=== PATIENT | male | born 1985 | race Caucasian/White ===

== ENCOUNTER → 2017-04-19 | Outpatient (CLI) | payer OTHER ==
--- NOTE | 2017-04-19 09:48 | REP ---
Clinical: Pain. Technique: AP, lateral, bilateral oblique views of the left hand. Findings: No acute fracture or dislocation. Oblique views demonstrate soft tissue swelling overlying and lateral to the fourth and fifth metacarpal bones without underlying subcutaneous emphysema or radiodense foreign body. Impression: Soft-tissue swelling. No acute fracture dislocation. No significant arthritic degenerative changes. Signed by Juan Urbina MD 04/19/2017 09:40 A
== END ==
LOC: M RAD 08:52
PROVIDERS: ATTEND Surgery
DX: R22.32 Localized swelling, mass and lump, left upper limb (principal)

== ENCOUNTER → 2017-09-22 | Outpatient (REF) | payer MEDICAID | LOC: M LAB REF 19:37 | DX: F11.20 Opioid dependence, uncomplicated (principal) ==

== ENCOUNTER → 2017-09-29 | Outpatient (REF) | payer MEDICAID ==
[2017-10-03 08:07] LABS: AMPHETAMINE SCREEN, URINE Negative ng/mL (Cutoff=1000); BARBITURATES SCREEN, URINE Negative ng/mL (Cutoff=200); BENZODIAZEPINES, URINE SCREEN Negative ng/mL (Cutoff=200); CANNABINOID SCREEN, URINE Negative ng/mL (Cutoff=20); COCAINE SCREEN, URINE Negative ng/mL (Cutoff=300); CREATININE, URINE 131.2 mg/dL (20.0-300.0); FENTANYL URINE SCREEN Negative pg/mL (Cutoff=2000); METHADONE, URINE SCREEN Negative ng/mL (Cutoff=300); OPIATE SCREEN, URINE Negative ng/mL (Cutoff=300); OXYCODONE, SCREEN, URINE Negative ng/mL (Cutoff=100); PCP SCREEN, URINE Negative ng/mL (Cutoff=25); SPECIFIC GRAVITY, URINE 1.023 (.); pH, URINE 8.3 (4.5-8.9)
== END ==
LOC: M LAB REF 21:23
DX: F11.20 Opioid dependence, uncomplicated (principal)

== ENCOUNTER → 2017-10-05 | Outpatient (REF) | payer MEDICAID | LOC: M LAB REF 16:37 | DX: F11.20 Opioid dependence, uncomplicated (principal) ==

== ENCOUNTER 2017-10-06 21:22 | Emergency (ER) | payer MEDICAID ==
[2017-10-06] MEDS ORDERED: ERYTHROMYCIN OPHTH OINT As Ordered (22:37)
[2017-10-06] MEDS: FLUORESCEIN OPHTH 1 MG STRIP OU (22:45)
[2017-10-06] MEDS: TETRACAINE 0.5% OPHTH SOLN 4ML OU (22:45)
[2017-10-06] MEDS: ERYTHROMYCIN OPHTH OINT OU (22:45)
== END 2017-10-06 23:46 | disposition home or self-care (01) ==
LOC: M ED 21:22
DX: S05.01XA Injury of conjunctiva and corneal abrasion without foreign body, right eye, initial encounter (principal); X58.XXXA Exposure to other specified factors, initial encounter; Y92.89 Other specified places as the place of occurrence of the external cause; Z79.899 Other long term (current) drug therapy
CPT/HCPCS: 99283

== ENCOUNTER → 2017-10-18 | Outpatient (REF) | payer MEDICAID | LOC: M LAB REF 19:49 | DX: F11.20 Opioid dependence, uncomplicated (principal) ==

== ENCOUNTER → 2017-10-31 | Outpatient (REF) | payer MEDICAID | LOC: M LAB REF 16:47 | DX: F11.20 Opioid dependence, uncomplicated (principal) ==

== ENCOUNTER → 2017-11-02 | Outpatient (REF) | payer MEDICAID | LOC: M LAB REF 17:01 | DX: F11.20 Opioid dependence, uncomplicated (principal) ==

== ENCOUNTER → 2017-12-13 | Outpatient (REF) | payer MEDICAID ==
[2017-12-13 20:09] LABS: ALBUMIN/GLOBULIN RATIO 1.11 (1.00-1.93); ALKALINE PHOSPHATASE 76 U/L (45-117); ALT/SGPT 55 U/L (12-78); ANION GAP 9 MEQ/L (8-16); AST/SGOT 37 U/L (7-37); BILIRUBIN,TOTAL 0.2 MG/DL (0.2-1.0); BLOOD UREA NITROGEN 20 MG/DL (7-18); CALCIUM LEVEL 8.9 MG/DL (8.5-10.1); CARBON DIOXIDE LEVEL 28 MEQ/L (21-32); CHLORIDE LEVEL 103 MEQ/L (98-107); CREATININE FOR GFR 1.03 MG/DL (0.70-1.30); GLOMERULAR FILTRATION RATE > 60.0 (>60); GLUCOSE, FASTING 102 MG/DL (70-100); POTASSIUM SERUM 3.9 MEQ/L (3.5-5.1); SODIUM LEVEL 140 MEQ/L (136-145); TOTAL PROTEIN 7.6 GM/DL (6.4-8.2)
[2017-12-15 10:57] LABS: HEPATITIS C VIRUS ABY INDEX > 11.0 INDEX (<0.8)
[2017-12-19 14:19] LABS: AMPHETAMINE SCREEN, URINE Negative ng/mL (Cutoff=1000); BARBITURATES SCREEN, URINE Negative ng/mL (Cutoff=200); BENZODIAZEPINES, URINE SCREEN Negative ng/mL (Cutoff=200); CANNABINOID SCREEN, URINE Negative ng/mL (Cutoff=20); COCAINE SCREEN, URINE Negative ng/mL (Cutoff=300); FENTANYL URINE SCREEN Negative pg/mL (Cutoff=2000); METHADONE, URINE SCREEN Negative ng/mL (Cutoff=300); NALOXONE RESULT Positive (.); OPIATE SCREEN, URINE Negative ng/mL (Cutoff=300); OXYCODONE, SCREEN, URINE Negative ng/mL (Cutoff=100); PCP SCREEN, URINE Negative ng/mL (Cutoff=25); SPECIFIC GRAVITY, URINE 1.025 (.); URINE BUPRENORPHINE Positive (.); URINE BUPRENORPHINE Positive (Cutoff=10); URINE BUPRENORPHINE See Final Results ng/mL (Cutoff=10); URINE BUPRENORPHINE CONFIRM 118 ng/mL (Cutoff=10); URINE NORBUPRENORPHINE Positive (.); URINE NORBUPRENORPHINE CONFIRM 380 ng/mL (Cutoff=10); pH, URINE 6.3 (4.5-8.9)
[2017-12-21 00:08] LABS: HCV RNA NAA QUALITATIVE Positive (Negative)
== END ==
LOC: M LAB REF 19:21
DX: F11.20 Opioid dependence, uncomplicated (principal)
CPT/HCPCS: 80053

== ENCOUNTER 2017-12-26 06:31 | Emergency (ER) | payer MEDICAID ==
[2017-12-26] MEDS ORDERED: ISOVUE-370 76% 100ML VIAL (Q9967) As Ordered (07:15)
[2017-12-26 07:28] LABS: BASO % 0.2 % (0.0-1.0); EOS # 0.1 10^3/uL (0.0-0.50); EOS % 0.3 % (0.0-3.0); HEMATOCRIT 37.9 % (42.0-52.0); HEMOGLOBIN 13.4 g/dl (13.5-17.5); IMMATURE GRANULOCYTE % 0.6 % (0-3.0); LYMPH # 1.8 10^3/uL (1.5-4.5); LYMPH % 9.6 % (24.0-44.0); MEAN CORPUSCULAR HEMOGLOBIN 29.9 pg (27.0-33.0); MEAN CORPUSCULAR HGB CONC 35.4 g/dl (32.0-36.5); MEAN CORPUSCULAR VOLUME 84.6 fl (80.0-96.0); MONO # 1.3 10^3/uL (0.0-0.8); MONO % 6.9 % (0.0-5.0); NEUTROPHILS # 15.6 10^3/uL (1.8-7.7); NEUTROPHILS % 82.4 % (36.0-66.0); PLATELET COUNT, AUTOMATED 224 10^3/uL (150-450); RED BLOOD COUNT 4.48 10^6/uL (4.30-6.10); WHITE BLOOD COUNT 18.9 10^3/uL (4.0-10.0)
[2017-12-26] MEDS: methylPREDNISolone INJ 125 MG/2 ML VIAL (J2930) IV (07:33)
[2017-12-26 07:55] LABS: D-DIMER QUANT 333.2 ng/ml (<500)
[2017-12-26] MEDS ORDERED: MOXIFLOXACIN 400 MG/250 ML IV BAG (AVELOX) (J2280) As Ordered (07:55)
[2017-12-26 07:58] LABS: ALBUMIN 3.8 GM/DL (3.2-5.2); ALBUMIN/GLOBULIN RATIO 0.97 (1.00-1.93); ALKALINE PHOSPHATASE 74 U/L (45-117); ALT/SGPT 44 U/L (12-78); ANION GAP 5 MEQ/L (8-16); AST/SGOT 29 U/L (7-37); BILIRUBIN,DIRECT 0.1 MG/DL (0.0-0.2); BILIRUBIN,TOTAL 0.7 MG/DL (0.2-1.0); BLOOD UREA NITROGEN 14 MG/DL (7-18); CALCIUM LEVEL 8.7 MG/DL (8.5-10.1); CARBON DIOXIDE LEVEL 29 MEQ/L (21-32); CHLORIDE LEVEL 102 MEQ/L (98-107); CK-MB VALUE MASS 1.2 NG/ML (<3.6); CPK CREATINE PHOSPHOKINASE 259 U/L (39-308); CREATININE FOR GFR 1.07 MG/DL (0.70-1.30); GLOMERULAR FILTRATION RATE > 60.0 (>60); GLUCOSE, FASTING 126 MG/DL (70-100); MB/CK RELATIVE INDEX 0.46 (< OR =4); SODIUM LEVEL 136 MEQ/L (136-145); TOTAL PROTEIN 7.7 GM/DL (6.4-8.2); TROPONIN I < 0.02 NG/ML (< 0.10)
[2017-12-26] MEDS: IPRATROPIUM 0.5MG/ALBUTEROL 2.5MG INH SOL UD 3ML (DUONEB)(J7620) NEB (08:09)
[2017-12-26] MEDS: ALBUTEROL SULFATE 2.5 MG/0.5 ML INH NEB SOLN INH (08:09)
[2017-12-26] MEDS: MOXIFLOXACIN HCL 400 MG in APPROPRIATE DILUENT 1 EA IV (08:22)
[2017-12-26] MEDS: NS 1,000 ML IV (09:23)
== END 2017-12-26 09:52 | disposition home or self-care (01) ==
LOC: M ED 06:31
DX: J18.9 Pneumonia, unspecified organism (principal); R94.31 Abnormal electrocardiogram [ECG] [EKG]; F17.200 Nicotine dependence, unspecified, uncomplicated; Z79.899 Other long term (current) drug therapy
CPT/HCPCS: J2280

== ENCOUNTER → 2018-01-03 | Outpatient (REF) | payer MEDICAID ==
[2018-01-11 10:13] LABS: AMPHETAMINE SCREEN, URINE Negative ng/mL (Cutoff=1000); BARBITURATES SCREEN, URINE Negative ng/mL (Cutoff=200); BENZODIAZEPINES, URINE SCREEN Negative ng/mL (Cutoff=200); CANNABINOID SCREEN, URINE Negative ng/mL (Cutoff=20); COCAINE SCREEN, URINE Negative ng/mL (Cutoff=300); CREATININE, URINE 156.9 mg/dL (20.0-300.0); FENTANYL URINE SCREEN Negative pg/mL (Cutoff=2000); METHADONE, URINE SCREEN Negative ng/mL (Cutoff=300); NALOXONE RESULT Positive (.); OPIATE SCREEN, URINE Negative ng/mL (Cutoff=300); OXYCODONE, SCREEN, URINE Negative ng/mL (Cutoff=100); PCP SCREEN, URINE Negative ng/mL (Cutoff=25); URINE BUPRENORPHINE Positive (.); URINE BUPRENORPHINE Positive (Cutoff=10); URINE BUPRENORPHINE See Final Results ng/mL (Cutoff=10); URINE BUPRENORPHINE CONFIRM 144 ng/mL (Cutoff=10); URINE NORBUPRENORPHINE Positive (.); URINE NORBUPRENORPHINE CONFIRM 232 ng/mL (Cutoff=10); pH, URINE 5.5 (4.5-8.9)
== END ==
LOC: M LAB REF 19:05
DX: F11.20 Opioid dependence, uncomplicated (principal)

== ENCOUNTER → 2018-02-21 | Outpatient (REF) | payer MEDICAID ==
[2018-02-27 14:48] LABS: HEPATITIS C QUANTITATION 4867780 IU/mL (.)
== END ==
LOC: M LAB REF 09:00
DX: B18.2 Chronic viral hepatitis C (principal)

== ENCOUNTER → 2018-03-21 | Outpatient (REF) | payer MEDICAID ==
[2018-03-21 20:18] LABS: BASO % 0.5 % (0.0-1.0); EOS # 0.2 10^3/uL (0.0-0.50); HEMATOCRIT 37.8 % (42.0-52.0); HEMOGLOBIN 13.8 g/dl (13.5-17.5); IMMATURE GRANULOCYTE % 0.5 % (0-3.0); LYMPH # 2.2 10^3/uL (1.5-4.5); LYMPH % 29.4 % (24.0-44.0); MEAN CORPUSCULAR HEMOGLOBIN 31.2 pg (27.0-33.0); MEAN CORPUSCULAR HGB CONC 36.5 g/dl (32.0-36.5); MEAN CORPUSCULAR VOLUME 85.3 fl (80.0-96.0); MONO # 0.4 10^3/uL (0.0-0.8); MONO % 5.6 % (0.0-5.0); NEUTROPHILS # 4.7 10^3/uL (1.8-7.7); PLATELET COUNT, AUTOMATED 231 10^3/uL (150-450); RED BLOOD COUNT 4.43 10^6/uL (4.30-6.10); RED CELL DISTRIBUTION WIDTH 12.1 % (11.5-14.5); WHITE BLOOD COUNT 7.6 10^3/uL (4.0-10.0)
[2018-03-21 20:59] LABS: INR 0.88; PROTHROMBIN TIME 12.1 SECONDS (12.1-14.4)
[2018-03-23 10:33] LABS: HEPATITIS B SURFACE ANTIBODY POSITIVE (POSITIVE)
[2018-03-23 10:41] LABS: HEPATITIS B SURFACE ANTIGEN NEGATIVE (NEGATIVE)
[2018-03-23 10:56] LABS: HIV 1&2 SCREEN CENTAUR NEGATIVE (NEGATIVE)
[2018-03-27 00:07] LABS: HEPATITIS A IgG TOTAL Positive (Negative); HEPATITIS C VIRUS GENOTYPE 1b (.)
== END ==
LOC: M LAB REF 19:36
DX: B18.2 Chronic viral hepatitis C (principal)
CPT/HCPCS: 86706

== ENCOUNTER 2018-04-14 08:19 | Emergency (ER) | payer OTHER, MEDICAID | END 2018-04-14 10:04 | disposition home or self-care (01) | LOC: M ED 08:19 | DX: M77.9 Enthesopathy, unspecified (principal); M19.041 Primary osteoarthritis, right hand; Z79.899 Other long term (current) drug therapy | CPT/HCPCS: 73130 ==

== ENCOUNTER → 2018-06-13 | Outpatient (REF) | payer OTHER ==
[2018-06-18 14:09] LABS: HEPATITIS C QUANTITATION <15 IU/mL (.)
== END ==
LOC: M LAB REF 18:28
DX: B18.2 Chronic viral hepatitis C (principal)
CPT/HCPCS: 87522

== ENCOUNTER → 2018-07-26 | Outpatient (REF) | payer OTHER ==
[2018-07-26 10:36] LABS: HEMATOCRIT 38.7 % (42.0-52.0); HEMOGLOBIN 13.8 g/dl (13.5-17.5); MEAN CORPUSCULAR HEMOGLOBIN 30.3 pg (27.0-33.0); MEAN CORPUSCULAR HGB CONC 35.7 g/dl (32.0-36.5); MEAN CORPUSCULAR VOLUME 84.9 fl (80.0-96.0); PLATELET COUNT, AUTOMATED 195 10^3/uL (150-450); RED BLOOD COUNT 4.56 10^6/uL (4.30-6.10); RED CELL DISTRIBUTION WIDTH 11.9 % (11.5-14.5)
[2018-07-26 11:01] LABS: ERYTHROCYTE SEDIMENTATION RATE 29 mm/hr (0-15)
[2018-07-26 12:16] LABS: C REACTIVE PROTEIN QUANTITATIV 0.55 MG/DL (0.00-0.30); RHEUMATOID FACTOR QUANT < 10.0 IU/ML (<15.0)
[2018-07-26 12:16] LABS: URIC ACID 5.5 MG/DL (3.5-7.2)
[2018-07-27 10:13] LABS: ANTINUCLEAR ANTIBODIES DIRECT Negative (Negative)
== END ==
LOC: M LABDRAW1 09:36
DX: G56.01 Carpal tunnel syndrome, right upper limb (principal)
CPT/HCPCS: 84550

== ENCOUNTER → 2018-08-08 | Outpatient (REF) | payer OTHER ==
[~2018-08-08] MED LIST: ALBU17IN2 INH; AVEL1TAB3 PO; IBUP-1022 PO; MOBI4TAB PO; OMEP40CA2 PO; PRED50TA PO; SUBO8MIS; TOBRSUS41 OP; TRIA0.5O; VENTAER IN
[2018-08-15 10:12] LABS: HEPATITIS C QUANTITATION HCV Not Detected IU/mL (.)
== END ==
LOC: M LAB REF 17:59
PROVIDERS: ATTEND Nurse Practitioner Adult Health
DX: B18.2 Chronic viral hepatitis C (principal)

== ENCOUNTER 2018-08-30 16:39 | Emergency (ER) | payer OTHER ==
[~2018-08-30] VITALS: Ht 172.7 cm; Wt 95.5 kg
[2018-08-30 17:13] LABS: BASO % 0.2 % (0.0-1.0); EOS # 0.1 10^3/uL (0.0-0.50); EOS % 1.1 % (0.0-3.0); HEMATOCRIT 38.7 % (42.0-52.0); LYMPH # 2.3 10^3/uL (1.5-4.5); LYMPH % 18.1 % (24.0-44.0); MEAN CORPUSCULAR HGB CONC 36.2 g/dl (32.0-36.5); MEAN CORPUSCULAR VOLUME 85.8 fl (80.0-96.0); MONO # 0.8 10^3/uL (0.0-0.8); MONO % 6.3 % (0.0-5.0); NEUTROPHILS # 9.3 10^3/uL (1.8-7.7); PLATELET COUNT, AUTOMATED 173 10^3/uL (150-450); RED BLOOD COUNT 4.51 10^6/uL (4.30-6.10); WHITE BLOOD COUNT 12.5 10^3/uL (4.0-10.0)
[2018-08-30 17:52] LABS: ALBUMIN 3.9 GM/DL (3.2-5.2); ALT/SGPT 25 U/L (12-78); BILIRUBIN,DIRECT < 0.1 MG/DL (0.0-0.2); BILIRUBIN,TOTAL 0.5 MG/DL (0.2-1.0); BLOOD UREA NITROGEN 15 MG/DL (7-18); CALCIUM LEVEL 8.8 MG/DL (8.5-10.1); CARBON DIOXIDE LEVEL 32 MEQ/L (21-32); CHLORIDE LEVEL 97 MEQ/L (98-107); CREATININE FOR GFR 0.93 MG/DL (0.70-1.30); GLOMERULAR FILTRATION RATE > 60.0 (>60); GLUCOSE, FASTING 109 MG/DL (70-100); LIPASE 339 U/L (73-393); POTASSIUM SERUM 4.3 MEQ/L (3.5-5.1); SODIUM LEVEL 136 MEQ/L (136-145); TOTAL PROTEIN 7.5 GM/DL (6.4-8.2)
[2018-08-30] MEDS ORDERED: ISOVUE-370 76% 100ML VIAL (Q9967) As Ordered ONE (17:54)
--- NOTE | 2018-08-30 18:14 | REPVR ---
EXAM: CT Abdomen and Pelvis With Contrast EXAM DATE/TIME: 08/30/2018 5:06 PM CLINICAL HISTORY: 33 years old, male; Pain; Abdominal pain; Other: Rlq; Additional info: Rlq pain; R/O appy TECHNIQUE: Axial computed tomography images of the abdomen and pelvis with intravenous contrast. All CT scans at this facility use at least one of these dose optimization techniques: automated exposure control; mA and/or kV adjustment per patient size (includes targeted exams where dose is matched to clinical indication); or iterative reconstruction. Coronal and sagittal reformatted images were created and reviewed. CONTRAST: 100 ml of isovue 370 administered intravenously. COMPARISON: No relevant prior studies available. FINDINGS: Lower thorax: Small sliding hiatal hernia. Thickening of the wall the distal esophagus secondary to reflux esophagitis. Clinical correlation needed. ABDOMEN: Liver: There is a diffuse decrease in hepatic parenchymal density, consistent with fatty infiltration. Gallbladder and bile ducts: Normal. No calcified stones. No ductal dilation. Pancreas: Inflammatory changes around the pancreatic head and uncinate process as well as the duodenal sweep. Findings are secondary to acute pancreatitis or duodenitis. Fluid tracks along the anterior pararenal space on the right into the right paracolic gutter. Spleen: Splenomegaly. Adrenals: Normal. No mass. Kidneys and ureters: Normal. No hydronephrosis. Stomach and bowel: Mild thickening of the wall of the terminal ileum which demonstrates enhancement. Findings which may indicate the presence of terminal ileitis of any etiology which should be correlated clinically. Appendix: Normal appendix. PELVIS: Bladder: Unremarkable as visualized. Reproductive: Unremarkable as visualized. ABDOMEN and PELVIS: Intraperitoneal space: Otherwise unremarkable. Bones/joints: No acute fracture. No dislocation. Degenerative narrowing L5-S1 with slight retrolisthesis of L5 on S1. Soft tissues: Small umbilical hernia. Vasculature: Normal. No abdominal aortic aneurysm. Lymph nodes: Normal. No enlarged lymph nodes. IMPRESSION: 1. Splenomegaly. 2. There is a diffuse decrease in hepatic parenchymal density, consistent with fatty infiltration. 3. Small sliding hiatal hernia. Thickening of the wall the distal esophagus secondary to reflux esophagitis. Clinical correlation needed. 4. Inflammatory changes around the pancreatic head and uncinate process as well as the duodenal sweep. Findings are secondary to acute pancreatitis or duodenitis. Fluid tracks along the anterior pararenal space on the right into the right paracolic gutter. 5. Normal appendix. 6. Mild thickening of the wall of the terminal ileum which demonstrates enhancement. Findings which may indicate the presence of terminal ileitis of any etiology which should be correlated clinically. Electronically signed by: Gumaro Davidson On 08/30/2018 18:13:39 PM
[2018-08-30 19:03] LABS: C REACTIVE PROTEIN QUANTITATIV 4.21 MG/DL (0.00-0.30)
[2018-08-30 19:47] LABS: ERYTHROCYTE SEDIMENTATION RATE 33 mm/hr (0-15)
[2018-08-30 20:20] VITALS: BP 130/67
--- NOTE | 2018-08-31 07:17 | ED PDOC ---
Post-Departure Follow-Up dr tapia faxed formal report of ct abd/p for fu Mahin Costello MD Aug 31, 2018 07:17
== END 2018-08-30 20:28 | disposition home or self-care (01) ==
LOC: M ED 16:39
DX: K85.90 Acute pancreatitis without necrosis or infection, unspecified (principal); F11.21 Opioid dependence, in remission; R16.1 Splenomegaly, not elsewhere classified; K44.9 Diaphragmatic hernia without obstruction or gangrene; Z79.899 Other long term (current) drug therapy
CPT/HCPCS: 36415; 74177; 80048; 80076; 81001; 83690; 85025; 85652; 86140; 99284; Q9967

== ENCOUNTER → 2018-09-17 | Outpatient (CLI) | payer OTHER ==
--- NOTE | 2018-09-17 08:45 | REP ---
Right upper quadrant sonography: History: Acute pancreatitis without necrosis or infection. Comparison study: CT exam of the abdomen August 30, 2018. Findings: Scanning through the right upper quadrant of the abdomen demonstrates a normal sized, thin-walled gallbladder without evidence of stone or polyp. Common bile duct is normal measuring 0.5 cm in greatest diameter. No focal liver lesion is seen. Liver size is normal. No pancreatic abnormality is observed. No right renal abnormality is seen. There is no evidence of ascites. The right kidney measures 10.1 x 6.7 x 4.8 cm. Impression: Negative right upper quadrant sonography. Electronically Signed by Avinash Poe MD 09/17/2018 08:37 A
== END ==
LOC: M RAD 06:36
PROVIDERS: ATTEND Surgery
DX: K85.90 Acute pancreatitis without necrosis or infection, unspecified (principal)

== ENCOUNTER → 2018-09-17 | Outpatient (CLI) | payer OTHER ==
[2018-09-17 08:37] LABS: CHOLESTEROL LEVEL 264 MG/DL (<200); CHOLESTEROL RISK RATIO 12.571 (<5); HDL CHOLESTEROL 21 MG/DL (>40); NON-HDL-C 243 MG/DL; TRIGLYCERIDES LEVEL 2756 MG/DL (<150)
== END ==
LOC: M LAB 07:34
PROVIDERS: ATTEND Nurse Practitioner Adult Health
DX: R10.9 Unspecified abdominal pain (principal)

== ENCOUNTER → 2018-10-03 | Outpatient (REF) | payer OTHER ==
[2018-10-05 08:07] LABS: HEPATITIS B CORE ANTIBODY IGG Negative (Negative)
[2018-10-05 11:48] LABS: HEPATITIS B SURFACE ANTIBODY POSITIVE (POSITIVE); HEPATITIS B SURFACE ANTIGEN NEGATIVE (NEGATIVE)
[2018-10-08 14:11] LABS: HEPATITIS C QUANTITATION HCV Not Detected IU/mL (.)
== END ==
LOC: M LAB REF 16:54
PROVIDERS: ATTEND Nurse Practitioner Adult Health
DX: B18.2 Chronic viral hepatitis C (principal)

== ENCOUNTER → 2018-10-04 | Outpatient (REF) | payer OTHER | LOC: M LAB REF 15:09 | PROVIDERS: ATTEND Surgery | DX: L72.0 Epidermal cyst (principal) ==

== ENCOUNTER → 2018-10-11 | Outpatient (REF) | payer OTHER | LOC: M SFHCPLAZ 17:22 | PROVIDERS: ATTEND Orthopaedic Surgery | DX: D23.61 Other benign neoplasm of skin of right upper limb, including shoulder (principal) ==

== ENCOUNTER → 2019-02-10 | Outpatient (CLI) | payer OTHER, SELFPAY ==
[~2019-02-10] MED LIST changes: +FENO160T10 PO; +IBUP80TA PO
[2019-02-10 11:23] LABS: ALBUMIN 3.7 GM/DL (3.2-5.2); ALT/SGPT 32 U/L (12-78); BILIRUBIN,TOTAL 0.4 MG/DL (0.2-1.0); BLOOD UREA NITROGEN 21 MG/DL (7-18); CALCIUM LEVEL 7.7 MG/DL (8.5-10.1); CARBON DIOXIDE LEVEL 30 MEQ/L (21-32); CHLORIDE LEVEL 104 MEQ/L (98-107); CHOLESTEROL LEVEL 255 MG/DL (<200); CHOLESTEROL RISK RATIO 11.086 (<5); CREATININE FOR GFR 0.98 MG/DL (0.70-1.30); GLOMERULAR FILTRATION RATE > 60.0 (>60); GLUCOSE, FASTING 160 MG/DL (70-100); HDL CHOLESTEROL 23 MG/DL (>40); NON-HDL-C 232 MG/DL; POTASSIUM SERUM 4.5 MEQ/L (3.5-5.1); SODIUM LEVEL 139 MEQ/L (136-145); TOTAL PROTEIN 7.3 GM/DL (6.4-8.2)
[2019-02-10 11:24] LABS: TRIGLYCERIDES LEVEL 2229 MG/DL (<150)
== END ==
LOC: M LAB 08:10
PROVIDERS: ATTEND Nurse Practitioner Adult Health
DX: E78.1 Pure hyperglyceridemia (principal)

== ENCOUNTER 2019-02-11 17:23 | Emergency (ER) | payer OTHER ==
[~2019-02-11] VITALS: Ht 172.7 cm; Wt 95.6 kg
[~2019-02-11 17:23] MED LIST changes: -FENO160T10 PO; -IBUP80TA PO
[2019-02-11] MEDS ORDERED: FENO160T10 PO (17:42)
[2019-02-11] MEDS ORDERED: IBUP80TA PO (17:42)
[2019-02-11 18:36] LABS: BASO % 0.4 % (0.0-1.0); EOS # 0.2 10^3/uL (0.0-0.50); HEMATOCRIT 35.9 % (42.0-52.0); HEMOGLOBIN 12.6 g/dl (13.5-17.5); LYMPH # 2.8 10^3/uL (1.5-4.5); LYMPH % 32.7 % (24.0-44.0); MEAN CORPUSCULAR HEMOGLOBIN 31.3 pg (27.0-33.0); MEAN CORPUSCULAR HGB CONC 35.1 g/dl (32.0-36.5); MEAN CORPUSCULAR VOLUME 89.1 fl (80.0-96.0); MONO # 0.5 10^3/uL (0.0-0.8); MONO % 5.6 % (0.0-5.0); NEUTROPHILS % 59.1 % (36.0-66.0); PLATELET COUNT, AUTOMATED 222 10^3/uL (150-450); RED BLOOD COUNT 4.03 10^6/uL (4.30-6.10); WHITE BLOOD COUNT 8.5 10^3/uL (4.0-10.0)
[2019-02-11 19:01] LABS: BLOOD UREA NITROGEN 21 MG/DL (7-18); CALCIUM LEVEL 8.3 MG/DL (8.5-10.1); CARBON DIOXIDE LEVEL 29 MEQ/L (21-32); CHLORIDE LEVEL 106 MEQ/L (98-107); CREATININE FOR GFR 1.04 MG/DL (0.70-1.30); GLOMERULAR FILTRATION RATE > 60.0 (>60); GLUCOSE, FASTING 101 MG/DL (70-100); POTASSIUM SERUM 4.4 MEQ/L (3.5-5.1); SODIUM LEVEL 141 MEQ/L (136-145)
[2019-02-11 20:11] VITALS: BP 132/73
--- NOTE | 2019-02-11 22:17 | ECGEPIP ---
[facility] - ED Test Date: 2019-02-11 Pat Name: NIRANJAN TURPIN Department: Room: - Gender: Male [employer]: ada : 1985 Requested By: NATHAN BISHOP Order Number: [id number] Reading MD: Cody Ho Measurements Intervals [place] Rate: 74 P: 30 RI: 181 QRS: 20 QRSD: 110 T: 26 QT: 353 QTc: 394 Interpretive Statements SINUS RHYTHM SIMILAR TO 12/26/17 Electronically Signed on 02-11-2019 22:17:49 EDT by Cody Ho
== END 2019-02-11 20:19 | disposition home or self-care (01) ==
LOC: M ED 17:23
DX: E78.5 Hyperlipidemia, unspecified (principal); K21.9 Gastro-esophageal reflux disease without esophagitis; Z83.3 Family history of diabetes mellitus; Z79.891 Long term (current) use of opiate analgesic; Z79.899 Other long term (current) drug therapy

== ENCOUNTER 2019-03-08 01:24 | Emergency (ER) | payer OTHER ==
[~2019-03-08] VITALS: Ht 172.7 cm; Wt 90.9 kg
[~2019-03-08 01:24] MED LIST changes: +FENO160T10 PO; +IBUP80TA PO
[2019-03-08] MEDS ORDERED: TETRACAINE 0.5% OPHTH SOLN 4ML OU ONE (01:45)
[2019-03-08] MEDS ORDERED: SIMV40TA2 (01:57)
[2019-03-08] MEDS ORDERED: FLUORESCEIN OPHTH 1 MG STRIP As Ordered ONE (02:44)
[2019-03-08] MEDS ORDERED: FLUORESCEIN OPHTH 1 MG STRIP OU ONE (02:45)
[2019-03-08] MEDS ORDERED: ERYT1OIN26 OP (03:41)
[2019-03-08] MEDS ORDERED: ERYTHROMYCIN OPHTH OINT OU ONE (03:45)
[2019-03-08 04:18] VITALS: BP 126/77
== END 2019-03-08 04:20 | disposition home or self-care (01) ==
LOC: M ED 01:24
DX: S05.01XA Injury of conjunctiva and corneal abrasion without foreign body, right eye, initial encounter (principal); S05.02XA Injury of conjunctiva and corneal abrasion without foreign body, left eye, initial encounter; X58.XXXA Exposure to other specified factors, initial encounter; Y92.9 Unspecified place or not applicable; Y93.9 Activity, unspecified; Y99.9 Unspecified external cause status; E78.00 Pure hypercholesterolemia, unspecified; Z72.0 Tobacco use; Z79.899 Other long term (current) drug therapy

== ENCOUNTER → 2019-04-11 | Outpatient (CLI) | payer OTHER ==
[~2019-04-11] MED LIST changes: -ALBU17IN2 INH; +ERYT1OIN26 OP; +PROV108A INH; +SIMV40TA2
[2019-04-11 09:05] LABS: HEMOGLOBIN A1c 5.7 %
[2019-04-11 09:13] LABS: ALBUMIN 3.9 GM/DL (3.2-5.2); ALT/SGPT 30 U/L (12-78); AMYLASE 58 U/L (25-115); BILIRUBIN,DIRECT < 0.1 MG/DL (0.0-0.2); BILIRUBIN,TOTAL 0.3 MG/DL (0.2-1.0); BLOOD UREA NITROGEN 15 MG/DL (7-18); CHOLESTEROL LEVEL 186 MG/DL (<200); CHOLESTEROL RISK RATIO 6.413 (<5); CPK CREATINE PHOSPHOKINASE 302 U/L (39-308); CREATININE FOR GFR 0.93 MG/DL (0.70-1.30); FREE T4 1.09 NG/DL (0.76-1.46); GLOMERULAR FILTRATION RATE > 60.0 (>60); HDL CHOLESTEROL 29 MG/DL (>40); LIPASE 162 U/L (73-393); NON-HDL-C 157 MG/DL; TOTAL PROTEIN 7.3 GM/DL (6.4-8.2); TRIGLYCERIDES LEVEL 605 MG/DL (<150)
== END ==
LOC: M LAB 07:37
PROVIDERS: ATTEND Internal Medicine Gastroenterology
DX: K85.90 Acute pancreatitis without necrosis or infection, unspecified (principal)

== ENCOUNTER → 2019-07-29 | Outpatient (CLI) | payer OTHER ==
[~2019-07-29] MED LIST changes: -OMEP40CA2 PO; +OMEP40CA97 PO; -SIMV40TA2; +SIMV40TA20
== END ==
LOC: M SLEEP HO 10:40
PROVIDERS: ATTEND Internal Medicine Cardiovascular Disease
DX: R06.83 Snoring (principal); R06.02 Shortness of breath
CPT/HCPCS: 36415; 83880; G0399

== ENCOUNTER → 2020-05-26 | Outpatient (CLI) | payer OTHER ==
[~2020-05-26] MED LIST changes: -ERYT1OIN26 OP; +ERYT5OIN25 OP
--- NOTE | 2020-05-29 09:42 | REP ---
LUMBOSACRAL SPINE SERIES: 05/26/20. CLINICAL: Lower back pain. TECHNIQUE: AP lateral bilateral oblique and coned down views of the lumbosacral spine. FINDINGS: Alignment and lordosis maintained. No acute fracture/compression injury or subluxation. No evidence for spondylolysis. Lateral view best demonstrates endplate sclerosis with disc space narrowing and mild hypertrophic facet changes at the L5-S1 level. Remainder of the examination is normal. IMPRESSION: Early degenerative changes at the L5-S1 level. MTDD
== END ==
LOC: M WUC 11:49
PROVIDERS: ATTEND Physician Assistant
DX: M51.37 Other intervertebral disc degeneration, lumbosacral region (principal)

== ENCOUNTER → 2020-06-01 | Outpatient (CLI) | payer OTHER ==
--- NOTE | 2020-06-01 14:22 | REP ---
INDICATION: PAIN IN KNEE AND FOOT COMPARISON: None. TECHNIQUE: AP and lateral views of the left tibia/fibula. FINDINGS: The osseous structures and joint spaces are intact and normal. There is no evidence for acute fracture or dislocation. Surrounding soft tissues are unremarkable. No subcutaneous emphysema or radiodense foreign body. IMPRESSION: Normal radiographic appearance. No acute fracture or dislocation. <Electronically signed by Juan Urbina > 06/01/20 [id number]
--- NOTE | 2020-06-01 14:26 | REP ---
INDICATION: PAIN IN KNEE AND FOOT COMPARISON: None. TECHNIQUE: AP, lateral views of the left calcaneus FINDINGS: The osseous structures and joint spaces are intact and normal. There is no evidence for acute fracture or dislocation. Surrounding soft tissues are unremarkable. No subcutaneous emphysema or radiodense foreign body. IMPRESSION: Normal left calcaneus radiographs. <Electronically signed by Juan Urbina > 06/01/20 [id number]
--- NOTE | 2020-06-01 14:27 | REP ---
INDICATION: PAIN IN KNEE AND FOOT COMPARISON: None. TECHNIQUE: AP, lateral, bilateral oblique and sunrise views. FINDINGS: The osseous structures and joint spaces are intact and normal. There is no evidence for acute fracture or dislocation. No joint effusion is appreciated. Surrounding soft tissues are unremarkable. No subcutaneous emphysema or radiodense foreign body. IMPRESSION: Normal examination. No acute fracture or dislocation. <Electronically signed by Juan Urbina > 06/01/20 [id number]
== END ==
LOC: M WUC 13:29
PROVIDERS: ATTEND Physician Assistant
DX: M25.562 Pain in left knee (principal); M79.672 Pain in left foot

== ENCOUNTER → 2020-06-01 | Outpatient (CLI) | payer OTHER ==
--- NOTE | 2020-06-01 12:09 | REP ---
INDICATION: TESTICULAR MASS COMPARISON: None. TECHNIQUE: Briseno scale and color Doppler evaluation using linear and curved array transducer with color Doppler evaluation. FINDINGS: The testicles and epididymi are relatively normal in contour, size, echogenicity, vascularity and overall appearance. Incidental 2 mm left epididymal cyst and 3 right epididymal cysts measuring 9 x 7 mm, 5 x 7 mm, and 5 x 3 mm each identified. There is no evidence for intratesticular mass lesion, infectious/inflammatory process, with torsion. No obvious hydroceles or varicoceles are identified. Patient's palpable mass corresponds to 11 x 3 x 6 mm ovoid hypoechoic lesion in the scrotal dermis which may represent small sebaceous cyst. Right testicle measures 4.3 x 2.0 x 2.5 cm. Left testicle measures 3.9 x 2.0 x 2.8 cm. IMPRESSION: 1. Normal appearance to the bilateral testicles. 2. Incidental epididymal cysts. 3. Palpable mass corresponds to small possible sebaceous/dermal cyst in the right scrotal wall essentially benign appearing. <Electronically signed by Juan Uribna > 06/01/20 [id number]
== END ==
LOC: M RAD 11:10
PROVIDERS: ATTEND Physician Assistant
DX: N50.9 Disorder of male genital organs, unspecified (principal)

== ENCOUNTER 2020-10-12 09:12 | Inpatient (IN) | payer OTHER ==
[~2020-10-12] VITALS: Ht 172.7 cm; Wt 95.0 kg
[2020-10-12] MEDS ORDERED: SUBO8MIS SL (09:31)
[2020-10-12] MEDS ORDERED: OMEP-221 PO (09:31)
[2020-10-12] MEDS ORDERED: ONDANSETRON 4MG/2ML VIAL IV ONE (09:45)
[2020-10-12] MEDS ORDERED: NS 1,000 ML IV ONE ×2 (09:45→11:25)
[2020-10-12] MEDS ORDERED: KETOROLAC 30 MG/ML 1ML VIAL IV ONE (09:45)
[2020-10-12] MEDS ORDERED: ISOVUE-370 76% 100ML VIAL As Ordered ONE (10:45)
[2020-10-12 10:58] LABS: BASO # 0.1 10^3/uL (0.0-0.2); BASO % 0.4 % (0.0-1.0); EOS # 0.1 10^3/uL (0.0-0.5); EOS % 0.4 % (0.0-3.0); LYMPH # 1.9 10^3/uL (1.5-5.0); LYMPH % 11.3 % (24.0-44.0); MONO # 0.6 10^3/uL (0.0-0.8); MONO % 3.9 % (2.0-8.0); NEUTROPHILS # 13.9 10^3/uL (1.5-8.5); NEUTROPHILS % 83.3 % (36.0-66.0)
--- NOTE | 2020-10-12 11:03 | REP ---
INDICATION: ABD PAIN, GENERALIZED. COMPARISON: 08/30/2018 TECHNIQUE: Axial contrast-enhanced images from the lung bases to the pubic symphysis using 100 cc Isovue 370 intravenous contrast material. Coronal and sagittal reformations obtained.. This CT examination was performed using the following dose reduction techniques: Automated exposure control, adjustment of mA and/or kv according to the patient's size, and the use of iterative reconstruction technique. FINDINGS: Moderate inflammatory stranding surrounds the head/uncinate process and mid body of the pancreas consistent with acute pancreatitis. The pancreatic parenchyma is relatively homogeneous and intact without evidence for necrosis or infarction. No associated drainable collection/abscess or pseudocyst identified. Hepatosplenomegaly noted. The gallbladder and biliary system appear normal. Bilateral adrenal glands and kidneys are normal. The enteric system including stomach, small, and large bowel are without obstruction or acute inflammatory process. Normal terminal ileum and appendix are identified in the right lower quadrant. Pelvis demonstrates normal bladder and age-appropriate prostate/seminal vesicles. No ascites. No free air. No retroperitoneal adenopathy. Abdominal aorta and vasculature normal. Musculoskeletal structures are intact. Lung bases without acute consolidation, atelectasis, or effusion. IMPRESSION: Acute pancreatitis. No associated drainable collection/abscess or pseudocyst. <Electronically signed by Juan Urbina > 10/12/20 [id number]
[2020-10-12 11:30] LABS: HEMATOCRIT 41.5 % (42.0-52.0); HEMOGLOBIN 16.5 g/dl (13.5-17.5); MEAN CORPUSCULAR VOLUME 85.5 fl (80.0-96.0); RED BLOOD COUNT 4.85 10^6/uL (4.30-6.10); WHITE BLOOD COUNT 17.8 10^3/uL (4.0-10.0)
[2020-10-12 11:31] LABS: MEAN CORPUSCULAR HGB CONC 39.7 g/dl (32.0-36.5); PLATELET COUNT, AUTOMATED 250 10^3/uL (150-450)
[2020-10-12 12:47] LABS: ALBUMIN 3.6 GM/DL (3.2-5.2); ALT/SGPT 40 U/L (12-78); BILIRUBIN,DIRECT < 0.1 MG/DL (0.0-0.2); BILIRUBIN,TOTAL 1.5 MG/DL (0.2-1.0); LIPASE 2511 U/L (73-393); TOTAL PROTEIN 7.8 GM/DL (6.4-8.2)
[2020-10-12] MEDS ORDERED: HYDROMORPHONE HCL 0.5 MG/ 0.5 ML SYRINGE (J1170 PER 1) IV PRN (13:15)
[2020-10-12] MEDS ORDERED: ONDANSETRON 4MG/2ML VIAL IV SCH (14:00)
[2020-10-12] MEDS ORDERED: VASC1CAP2 PO (14:05)
--- NOTE | 2020-10-12 14:10 | HPEPDOC ---
[facility] Medical History & Physical Date of Admission Oct 12, 2020 Date of Service: Oct 12, 2020 Attending Physician: Edita Christie MD History and Physical CHIEF COMPLAINT: Abdominal pain HISTORY OF PRESENT ILLNESS: Patient is a 35-year-old male with PMH of substance abuse, hyperlipidemia, acid reflux, history of pancreatitis who presented to [facility] emergency room with the chief complaint of worsening severe abdominal pain since early this morning. The patient states he woke up with severe diffuse abdominal pain, sharp, 10/10 on pain scale, non-radiating to the chest or the back. Pain was worse with movement. He had associated weakness but denied chest pain, shortness of breath, nausea, vomiting, diarrhea, recent illnesses, fevers, chills. He had similar pain 4 years ago when he had an episode of pancreatitis but he states that this is worse. He came to the emergency room due to the pain being severe and not improving at home. In the emergency room vital signs were stable. WBC 17.8 sodium 133, AST 50/a LT 40. T bili 1.5, alkaline phosphatase 90. Lipase 2511. CT abdomen and pelvis showed acute pancreatitis without pseudocyst or necrotizing concerns. Patient was given Toradol and Dilaudid for pain control but did not improve significantly. The patient was later admitted to hospitalist service for acute pancreatitis. REVIEW OF SYSTEMS: Negative except for what is mentioned above. PAST MEDICAL HISTORY: History of pancreatitis GERD History of substance abuse Dyslipidemia PAST SURGICAL HISTORY: None FAMILY HISTORY: Father: Coronary artery disease status post CO. at 38 Mother: History of cancer. at age 44 SOCIAL HISTORY: Smoker for 26 years, 1 pack per day. He also does smoke was tobacco daily. Smokes marijuana. Denies alcohol use. Lives with his and family in the local area. He is a full code. ALLERGIES: Please see below. HOME MEDICATIONS: Please see below. PHYSICAL EXAMINATION: VS: Please see below CONSTITUTIONAL: Appears uncomfortable , diaphoretic, AAO x 3 EYES: PERRLA, EOM intact HENT, MOUTH: Normocephalic, atraumatic, moist mucous membranes NECK: SUPPLE, no JVD, no lymphadenopathy, no carotid bruit CV: Regular rate and rhythm, S1S2 normal, no murmurs/rubs/gallops RESPIRATORY: Clear to auscultation bilaterally, no rales/rhonchi/wheezes GI: diffuse abdominal pain on palpation, BS positive in 4 quadrants, soft, nondistended, no rebound or guarding, no organomegaly : Deferred MUSCULOSKELETAL: Normal ROM. No cyanosis, clubbing, swelling, joint deformity, extremity edema INTEGUMENTARY: Intact, no rashes, no lesions, no erythema NEUROLOGIC: Cranial Nerves II-XII are intact, no focal deficits PSYCHIATRIC: Mood and affect are normal LABORATORY DATA: Please see below IMAGING: CT abd/pelvis: Acute pancreatitis. No associated drainable collection/abscess or pseudocyst. ASSESSMENT: 35-year-old male with PMH of substance abuse, hyperlipidemia, acid reflux, history of pancreatitis admitted for acute pancreatitis. PLAN: Acute pancreatitis -Hx of pancreatitis 4 years ago -Pain severe, WBC 17K, afebrile -CT abd/pelvis above -F/u lipid panel -NPO, IVFs at 125 cc/hr, pain control with toradol, morphine PRN (hx of substance abuse but opted for narcotics for pain control PRN) Hx of substance -Can continue with home medications HLD -Holding tatin GERD -IV PPI DVT px -Lovenox DISPOSITION: Admitted as acute inpatient. Plan is discharge home when medically improved. Vital Signs Vital Signs Date Time Temp Pulse Resp B/P (MAP) Pulse Ox O2 Delivery O2 Flow Rate FiO2 10/12/20 10:33 Automatic Cuff (NIBP) Left Arm 10/12/20 09:29 95.9 87 22 97 Room Air Laboratory Data Labs 24H Laboratory Tests 2 10/12/20 10:20: Immature Granulocyte % (Auto) 0.7, Neutrophils (%) (Auto) 83.3H, Lymphocytes (%) (Auto) 11.3L, Monocytes (%) (Auto) 3.9, Eosinophils (%) (Auto) 0.4, Basophils (%) (Auto) 0.4, Neutrophils # (Auto) 13.9H, Lymphocytes # (Auto) 1.9, Monocytes # (Auto) 0.6, Eosinophils # (Auto) 0.1, Basophils # (Auto) 0.1, Nucleated Red Blood Cells % (auto) 0.0, Total Bilirubin 1.5H, Direct Bilirubin < 0.1, Aspartate Amino Transf (AST/SGOT) 50H, Alanine Aminotransferase (ALT/SGPT) 40, Alkaline Phosphatase 90, Total Protein 7.8, Albumin 3.6, Albumin/Globulin Ratio 0.9, Lipase 2511H 10/12/20 10:36: POC Glucose (Misc Panel) 134H, POC Sodium (Misc Panel) 133L, POC Potassium (Misc Panel) 5.1, POC Chloride (Misc Panel) 102, POC Total CO2 (Misc Panel) 33.0H, POC Blood Urea Nitrogen (Misc Panel 23, POC Ionized Calcium (Misc Panel) 4.5, POC Creatinine (Misc Panel) 0.9, POC Hematocrit (Misc Panel) 48.0 CBC/BMP Laboratory Tests 10/12/20 10:20 Home Medications Miscellaneous Medications Buprenorphine HCl/Naloxone HCl (Suboxone 8 mg-2 mg Sl Film) 1 Each Film Omeprazole (Omeprazole) 40 Mg Capsule. Simvastatin (Simvastatin) 40 Mg Tablet Allergies Coded Allergies: No Known Allergies (Unverified , 10/06/17) A-FIB/CHADSVASC A-FIB History Current/History of A-Fib/PAF?: No Current PO Anticoag Therapy: No Age/Risk Factor Scoring CHADSVASC: CHADSVASC Response (Comments) Value Age Risk Factor Age < 65 years old 0 Gender Risk Factor Male 0 Hx of CHF No 0 Hx of HTN No 0 Hx of Stroke/TIA/or VTE No 0 Hx of Diabetes No 0 Hx of Vascular Disease No 0 Total 0 Treatment Treatment ordered: Other Other anticoagulant ordered: Edita Danielson MD Oct 12, 2020 14:10
[2020-10-12 15:12] LABS: INR 0.92; PROTHROMBIN TIME 12.6 SECONDS (12.5-14.3)
[2020-10-12 15:13] LABS: PARTIAL THROMBOPLASTIN TIME 34.6 SECONDS (24.2-38.5)
[2020-10-12 16:00] VITALS: BP 106/92
[2020-10-12] MEDS: NS 1,000 ML IV SCH ×2 (17:03→23:56)
[2020-10-12] MEDS: PANTOPRAZOLE 40MG VIAL (C9113 PER 1) IV SCH (17:03)
[2020-10-12] MEDS: ONDANSETRON 4MG/2ML VIAL IV SCH ×2 (17:03→21:25)
[2020-10-12] MEDS: ENOXAPARIN 40MG/0.4ML SYRINGE (J1650 PER 10MG) SC SCH (17:04)
[2020-10-12] MEDS: MORPHINE 2 MG/ML 1ML VIAL (J2270) IV PRN ×2 (17:04→23:29)
[2020-10-12] MEDS: KETOROLAC 30 MG/ML 1ML VIAL IV PRN (21:26)
[2020-10-12 22:00] VITALS: BP 134/63
[2020-10-12 22:18] LABS: CHOLESTEROL LEVEL 360 MG/DL (<200); CHOLESTEROL RISK RATIO 10.588 (<5); HDL CHOLESTEROL 34 MG/DL (>40); NON-HDL-C 326 MG/DL; TRIGLYCERIDES LEVEL 2031 MG/DL (<150)
[2020-10-12] MEDS: BUPRENORPHINE/NALOXONE 8-2MG SUBLINGUAL TABLET(SUBOXONE) SL SCH (23:29)
[2020-10-13] MEDS: KETOROLAC 30 MG/ML 1ML VIAL IV PRN ×3 (03:45→18:09)
[2020-10-13] MEDS: ONDANSETRON 4MG/2ML VIAL IV SCH ×2 (05:07→09:41)
[2020-10-13 06:00] VITALS: BP 135/71
[2020-10-13 06:12] LABS: HEMATOCRIT 49.6 % (42.0-52.0); HEMOGLOBIN 17.2 g/dl (13.5-17.5); MEAN CORPUSCULAR HEMOGLOBIN 29.7 pg (27.0-33.0); MEAN CORPUSCULAR HGB CONC 34.7 g/dl (32.0-36.5); MEAN CORPUSCULAR VOLUME 85.7 fl (80.0-96.0); PLATELET COUNT, AUTOMATED 253 10^3/uL (150-450); RED BLOOD COUNT 5.79 10^6/uL (4.30-6.10); WHITE BLOOD COUNT 26.3 10^3/uL (4.0-10.0)
[2020-10-13 07:26] LABS: ALBUMIN 3.1 GM/DL (3.2-5.2); ALT/SGPT 22 U/L (12-78); BILIRUBIN,TOTAL 0.4 MG/DL (0.2-1.0); BLOOD UREA NITROGEN 20 MG/DL (7-18); CALCIUM LEVEL 6.3 MG/DL (8.5-10.1); CARBON DIOXIDE LEVEL 26 MEQ/L (21-32); CHLORIDE LEVEL 103 MEQ/L (98-107); CHOLESTEROL LEVEL 313 MG/DL (<200); CHOLESTEROL RISK RATIO 9.781 (<5); CREATININE FOR GFR 1.12 MG/DL (0.70-1.30); GLOMERULAR FILTRATION RATE > 60.0 (>60); GLUCOSE, FASTING 162 MG/DL (70-100); HDL CHOLESTEROL 32 MG/DL (>40); NON-HDL-C 281 MG/DL; POTASSIUM SERUM 5.3 MEQ/L (3.5-5.1); SODIUM LEVEL 137 MEQ/L (136-145); TOTAL PROTEIN 6.7 GM/DL (6.4-8.2); TRIGLYCERIDES LEVEL 1304 MG/DL (<150)
[2020-10-13] MEDS: NS 1,000 ML IV SCH ×3 (07:52→16:33)
[2020-10-13] MEDS: ENOXAPARIN 40MG/0.4ML SYRINGE (J1650 PER 10MG) SC SCH (09:41)
[2020-10-13] MEDS: BUPRENORPHINE/NALOXONE 8-2MG SUBLINGUAL TABLET(SUBOXONE) SL SCH ×2 (09:42→20:54)
[2020-10-13] MEDS: MORPHINE 2 MG/ML 1ML VIAL (J2270) IV PRN ×2 (12:47→18:58)
--- NOTE | 2020-10-13 13:00 | IPNPDOC ---
Text Note Date of Service The patient was seen on 10/13/20. NOTE SUBJECTIVE: -Ongoing abdominal pain, distended today PHYSICAL EXAMINATION: VS: Please see below CONSTITUTIONAL: NAD, walking around room, AAO x 3 EYES: PERRLA, EOM intact HENT, MOUTH: Normocephalic, atraumatic, moist mucous membranes NECK: SUPPLE, no JVD, no lymphadenopathy, no carotid bruit CV: Regular rate and rhythm, S1S2 normal, no murmurs/rubs/gallops RESPIRATORY: Clear to auscultation bilaterally, no rales/rhonchi/wheezes GI: diffuse abdominal pain on palpation worst in epigastrium, distended, BS normoactive in 4 quadrants, no rebound or involuntary guarding, no organomegaly MUSCULOSKELETAL: Normal ROM. No cyanosis, clubbing, swelling, joint deformity, extremity edema INTEGUMENTARY: Intact, no rashes, no lesions, no erythema NEUROLOGIC: Cranial Nerves II-XII are intact, no focal deficits PSYCHIATRIC: Mood and affect are normal LABORATORY DATA: Reviewed. WBC uptrended to 26.3 IMAGIN10/12/2020 CT abd/pelvis: Acute pancreatitis. No associated drainable collection/abscess or pseudocyst. ASSESSMENT: 35-year-old male with PMH of substance abuse, hyperlipidemia, acid reflux, history of pancreatitis admitted for acute pancreatitis. PLAN: Acute pancreatitis -Hx of pancreatitis 4 years ago -Pain severe, WBC uptrended to 26k, afebrile -CT abd/pelvis above -Downtrending lipids --> f/u tomorrow AM -Continue NPO, IVFs at 125 cc/hr, pain control with toradol, morphine PRN (hx of substance abuse but opted for narcotics for pain control PRN) -Rescan - CT A/P given worsening exam and leukocytosis -Begin empiric zosyn Hx of substance -Can continue with home medications HLD -Holding tatin GERD -IV PPI DVT px -Lovenox DISPOSITION: Admitted as acute inpatient. Plan is discharge home when medically improved. VS,Fishbone, I+O VS, Fishbone, I+O Laboratory Tests 10/13/20 05:58 Vital Signs Date Time Temp Pulse Resp B/P (MAP) Pulse Ox O2 Delivery O2 Flow Rate FiO2 10/13/20 12:47 20 10/13/20 06:00 98.4 107 135/71 (89) 90 10/12/20 16:00 Room Air I&O- Last 24 Hours up to 6 AM 10/13/20 06:00 Intake Total 3950 ml Output Total 650 ml Balance 3300 ml EDUARDO CONRAD MD Oct 13, 2020 13:00
[2020-10-13] MEDS: PIPERACILLIN/TAZOBACTAM SOD 3.375 GM in D5W MINI-BAG PLUS 50 ML IV SCH ×2 (13:34→20:54)
[2020-10-13] MEDS: PANTOPRAZOLE 40MG VIAL (C9113 PER 1) IV SCH (13:34)
--- NOTE | 2020-10-13 13:39 | REP ---
INDICATION: worsening abd pain, distention and leukocytosis with pancrea COMPARISON: 10/12/2020 TECHNIQUE: Axial noncontrast images from the lung bases to the pubic symphysis with coronal and sagittal reformations. This CT examination was performed using the following dose reduction techniques: Automated exposure control, adjustment of mA and/or kv according to the patient's size, and use of iterative reconstruction technique. FINDINGS: Lung bases demonstrate moderate increased bibasilar atelectasis. Significantly increased peripancreatic and generalized mesenteric inflammatory changes are appreciated throughout the abdomen and pelvis which now include small to moderate amount of ascites extending along the bilateral pericolic gutters into the pelvis. No obvious focal drainable collection/abscess or pseudocyst is identifiable. Hepatosplenomegaly is again noted. Vicarious excretion of contrast into the gallbladder is noted. Kidneys down demonstrate perinephric stranding likely representing secondary inflammatory changes due to pancreatitis. Bilateral adrenal glands are normal in appearance. There is no evidence for bowel obstruction or free air to suggest perforation. Pelvis demonstrates relatively normal bladder and age-appropriate prostate/seminal vesicles. Calcifications and or foreign body inseparable from the penile shaft warrant correlation, but are unchanged as compared with CT dated 2019. Osseous structures are intact and without acute abnormality. IMPRESSION: 1. Worsening findings related to pancreatitis including markedly increased inflammatory stranding throughout the abdomen and pelvis as well as moderate amount of ascites extending along the pericolic gutters into the pelvis. No obvious drainable collection/abscess or pseudocyst noted. 2. Increased bibasilar atelectasis. 3. Further nonacute findings as above. <Electronically signed by Juan Urbina > 10/13/20 [id number]
[2020-10-13 14:00] VITALS: BP 145/91
[2020-10-13 14:17] LABS: LIPASE 1919 U/L (73-393)
[2020-10-13] MEDS: ACETAMINOPHEN TAB 650MG DOSE (2X325MG) PO PRN ×2 (14:34→20:54)
[2020-10-13] MEDS ORDERED: gemfibroziL 600 MG TAB PO SCH (17:30)
[2020-10-13] MEDS: ONDANSETRON 4MG/2ML VIAL IV PRN (21:19)
[2020-10-13 22:00] VITALS: BP 136/89
[2020-10-14] MEDS: NS 1,000 ML IV SCH ×4 (00:41→18:31)
[2020-10-14] MEDS: MORPHINE 2 MG/ML 1ML VIAL (J2270) IV PRN ×2 (01:04→21:05)
[2020-10-14] MEDS: PIPERACILLIN/TAZOBACTAM SOD 3.375 GM in D5W MINI-BAG PLUS 50 ML IV SCH ×4 (01:04→21:04)
[2020-10-14 06:00] VITALS: BP 119/76
[2020-10-14 06:16] LABS: HEMATOCRIT 40.3 % (42.0-52.0); MEAN CORPUSCULAR HEMOGLOBIN 29.1 pg (27.0-33.0); MEAN CORPUSCULAR HGB CONC 33.3 g/dl (32.0-36.5); MEAN CORPUSCULAR VOLUME 87.4 fl (80.0-96.0); PLATELET COUNT, AUTOMATED 188 10^3/uL (150-450); RED BLOOD COUNT 4.61 10^6/uL (4.30-6.10); WHITE BLOOD COUNT 17.7 10^3/uL (4.0-10.0)
[2020-10-14 06:21] LABS: HEMOGLOBIN 13.4 g/dl (13.5-17.5)
[2020-10-14 06:43] LABS: ALBUMIN 2.9 GM/DL (3.2-5.2); ALT/SGPT 11 U/L (12-78); BILIRUBIN,TOTAL 0.5 MG/DL (0.2-1.0); BLOOD UREA NITROGEN 27 MG/DL (7-18); CALCIUM LEVEL 6.4 MG/DL (8.5-10.1); CARBON DIOXIDE LEVEL 26 MEQ/L (21-32); CHLORIDE LEVEL 106 MEQ/L (98-107); CHOLESTEROL LEVEL 193 MG/DL (<200); CHOLESTEROL RISK RATIO 8.772 (<5); CREATININE FOR GFR 0.94 MG/DL (0.70-1.30); GLOMERULAR FILTRATION RATE > 60.0 (>60); GLUCOSE, FASTING 118 MG/DL (70-100); HDL CHOLESTEROL 22 MG/DL (>40); LDL CHOLESTEROL 97 MG/DL (<100); NON-HDL-C 171 MG/DL; POTASSIUM SERUM 4.2 MEQ/L (3.5-5.1); SODIUM LEVEL 137 MEQ/L (136-145); TOTAL PROTEIN 6.6 GM/DL (6.4-8.2); TRIGLYCERIDES LEVEL 370 MG/DL (<150)
[2020-10-14 08:09] LABS: LIPASE 878 U/L (73-393)
[2020-10-14] MEDS: BUPRENORPHINE/NALOXONE 8-2MG SUBLINGUAL TABLET(SUBOXONE) SL SCH ×2 (08:15→21:04)
[2020-10-14] MEDS: ENOXAPARIN 40MG/0.4ML SYRINGE (J1650 PER 10MG) SC SCH (08:16)
--- NOTE | 2020-10-14 11:07 | IPNPDOC ---
Text Note Date of Service The patient was seen on 10/14/20. NOTE SUBJECTIVE: -Ongoing abdominal pain, improved from yesterday -Had fever yesterday afternoon to 101.1 --> BCx drawn --> was started on zosyn -Had repeat CT A/P for worsening abdominal pain and distention --> showed worsening pancreatitis without a pseudocyst or necrosis PHYSICAL EXAMINATION: VS: Please see below CONSTITUTIONAL: NAD, walking around room, AAO x 3 EYES: PERRLA, EOM intact HENT, MOUTH: Normocephalic, atraumatic, moist mucous membranes NECK: SUPPLE, no JVD, no lymphadenopathy, no carotid bruit CV: Regular rate and rhythm, S1S2 normal, no murmurs/rubs/gallops RESPIRATORY: Clear to auscultation bilaterally, no rales/rhonchi/wheezes GI: diffuse abdominal pain on palpation continues to be worst in epigastrium, soft today, mildly distended, improved from yesterday, BS normoactive in 4 quadrants, no rebound or involuntary guarding, no organomegaly MUSCULOSKELETAL: Normal ROM. No cyanosis, clubbing, swelling, joint deformity, extremity edema INTEGUMENTARY: Intact, no rashes, no lesions, no erythema NEUROLOGIC: Cranial Nerves II-XII are intact, no focal deficits PSYCHIATRIC: Mood and affect are normal Labs: Reviewed: WBC 17.7 Hgb 13.4 platelets 188 Na 137 K 4.2 Cr 0.94 Triglycerides 370 Total cholesterol 193 LDL [address] A/P 10/12: FINDINGS: Moderate inflammatory stranding surrounds the head/uncinate process and mid body of the pancreas consistent with acute pancreatitis. The pancreatic parenchyma is relatively homogeneous and intact without evidence for necrosis or infarction. No associated drainable collection/abscess or pseudocyst identified. Hepatosplenomegaly noted. The gallbladder and biliary system appear normal. Bilateral adrenal glands and kidneys are normal. The enteric system including stomach, small, and large bowel are without obstruction or acute inflammatory process. Normal terminal ileum and appendix are identi fied in the right lower quadrant. Pelvis demonstrates normal bladder and age-appropriate prostate/seminal vesicles. No ascites. No free air. No retroperitoneal adenopathy. Abdominal aorta and vasculature normal. Musculoskeletal structures are intact. Lung bases without acute consolidation, atelectasis, or effusion. IMPRESSION: Acute pancreatitis. No associated drainable collection/abscess or pseudocyst. CT A/P 3/2: FINDINGS: Lung bases demonstrate moderate increased bibasilar atelectasis. Significantly increased peripancreatic and generalized mesenteric inflammatory changes are appreciated throughout the abdomen and pelvis which now include small to moderate amount of ascites extending along the bilateral pericolic gutters into the pelvis. No obvious focal drainable collection/abscess or pseudocyst is identifiable. Hepatosplenomegaly is again noted. Vicarious excretion of contrast into the gallbladder is noted. Kidneys down demonstrate perinephric stranding likely representing secondary inflammatory changes due to pancreatitis. Bilateral adrenal glands are normal in appearance. There is no evidence for bowel obstruction or free air to suggest perforation. Pelvis demonstrates relatively normal bladder and age-appropriate prostate/seminal vesicles. Calcifications and or foreign body inseparable from the penile shaft warrant correlation, but are unchanged as compared with CT dated 2019. Osseous structures are intact and without acute abnormality. IMPRESSION: 1. Worsening findings related to pancreatitis including markedly increased inflammatory stranding throughout the abdomen and pelvis as well as moderate amount of ascites extending along the pericolic gutters into the pelvis. No obvious drainable collection/abscess or pseudocyst noted. 2. Increased bibasilar atelectasis. 3. Further nonacute findings as above. ASSESSMENT: 35-year-old male with PMH of substance abuse, hyperlipidemia, acid reflux, history of pancreatitis admitted for acute pancreatitis. PLAN: Acute pancreatitis 2/2 hypertriglyceridemia. Apparently was told by his cardiolo gist to not take gemfibrozil or statins due to intolerance? Was on vascepa at home. 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 -Hx of pancreatitis 4 years ago -Pain severe, WBC now downtrending -CT abd/pelvis above -Downtrending lipids -Continue NPO, IVFs at 125 cc/hr, pain control with toradol, morphine PRN (hx of substance abuse but opted for narcotics for pain control PRN) -Repeat CT A/P showed worsening pancreatitis -Had fever, worsening leukocytosis and distention with imaging showing worsening inflammation --> started on zosyn, day 2 Hx of substance abuse: -Can continue with home medications HLD and hypertriglyceridemia -on valserpa, to be restarted today GERD -IV PPI DVT px -Lovenox DISPOSITION: To remain inpatient. Plan is discharge home when medically improved. VS,Fishbone, I+O VS, Fishbone, I+O Laboratory Tests 10/14/20 05:51 Vital Signs Date Time Temp Pulse Resp B/P (MAP) Pulse Ox O2 Delivery O2 Flow Rate FiO2 10/14/20 06:00 97.5 116 20 119/76 (90) 94 10/14/20 01:04 Room Air I&O- Last 24 Hours up to 6 AM 10/14/20 06:00 Intake Total 3400 ml Output Total 0 ml Balance 3400 ml EDUARDO CONRAD MD Oct 14, 2020 08:20
[2020-10-14] MEDS: ICOSAPENT ETHYL 1 GM PO SCH (11:17)
[2020-10-14] MEDS: PANTOPRAZOLE 40MG VIAL (C9113 PER 1) IV SCH (13:21)
[2020-10-14 14:00] VITALS: BP 148/91
[2020-10-14] MEDS: ACETAMINOPHEN TAB 650MG DOSE (2X325MG) PO PRN ×2 (14:55→23:15)
[2020-10-14] MEDS: KETOROLAC 30 MG/ML 1ML VIAL IV PRN (18:31)
[2020-10-14] MEDS: ONDANSETRON 4MG/2ML VIAL IV PRN (21:04)
[2020-10-14 22:00] VITALS: BP 146/81
[2020-10-15] MEDS: PIPERACILLIN/TAZOBACTAM SOD 3.375 GM in D5W MINI-BAG PLUS 50 ML IV SCH ×4 (01:13→21:11)
[2020-10-15] MEDS: KETOROLAC 30 MG/ML 1ML VIAL IV PRN ×4 (01:14→22:48)
[2020-10-15] MEDS: NS 1,000 ML IV SCH ×5 (01:14→21:11)
[2020-10-15] MEDS: MORPHINE 2 MG/ML 1ML VIAL (J2270) IV PRN ×2 (05:08→11:36)
[2020-10-15 06:00] VITALS: BP 144/83
[2020-10-15 07:00] VITALS: BP 142/83
[2020-10-15 08:43] LABS: HEMATOCRIT 32.3 % (42.0-52.0); HEMOGLOBIN 10.4 g/dl (13.5-17.5); MEAN CORPUSCULAR HEMOGLOBIN 28.3 pg (27.0-33.0); MEAN CORPUSCULAR HGB CONC 32.2 g/dl (32.0-36.5); PLATELET COUNT, AUTOMATED 154 10^3/uL (150-450); RED BLOOD COUNT 3.67 10^6/uL (4.30-6.10); WHITE BLOOD COUNT 12.1 10^3/uL (4.0-10.0)
[2020-10-15] MEDS: ICOSAPENT ETHYL 1 GM PO SCH (08:47)
[2020-10-15] MEDS: BUPRENORPHINE/NALOXONE 8-2MG SUBLINGUAL TABLET(SUBOXONE) SL SCH ×2 (08:48→16:05)
[2020-10-15] MEDS: ENOXAPARIN 40MG/0.4ML SYRINGE (J1650 PER 10MG) SC SCH (08:48)
[2020-10-15] MEDS: ACETAMINOPHEN TAB 650MG DOSE (2X325MG) PO PRN ×3 (08:50→21:11)
[2020-10-15 09:02] LABS: ALBUMIN 2.8 GM/DL (3.2-5.2); ALT/SGPT 17 U/L (12-78); BILIRUBIN,TOTAL 0.4 MG/DL (0.2-1.0); BLOOD UREA NITROGEN 15 MG/DL (7-18); CALCIUM LEVEL 6.7 MG/DL (8.5-10.1); CARBON DIOXIDE LEVEL 28 MEQ/L (21-32); CHLORIDE LEVEL 102 MEQ/L (98-107); CHOLESTEROL LEVEL 216 MG/DL (<200); CHOLESTEROL RISK RATIO 9.818 (<5); CREATININE FOR GFR 0.59 MG/DL (0.70-1.30); GLOMERULAR FILTRATION RATE > 60.0 (>60); GLUCOSE, FASTING 104 MG/DL (70-100); HDL CHOLESTEROL 22 MG/DL (>40); LDL CHOLESTEROL 130 MG/DL (<100); LIPASE 423 U/L (73-393); NON-HDL-C 194 MG/DL; POTASSIUM SERUM 3.7 MEQ/L (3.5-5.1); SODIUM LEVEL 136 MEQ/L (136-145); TOTAL PROTEIN 5.9 GM/DL (6.4-8.2); TRIGLYCERIDES LEVEL 321 MG/DL (<150)
--- NOTE | 2020-10-15 12:30 | IPNPDOC ---
Text Note Date of Service The patient was seen on 10/15/20. NOTE SUBJECTIVE: -Moderate worsening of abdominal pain since starting clears, was drinking lots of fluids --> placed back on sips and ice chips -Had fever yesterday afternoon PHYSICAL EXAMINATION: VS: Please see below CONSTITUTIONAL: NAD, walking around room, AAO x 3 EYES: PERRLA, EOM intact HENT, MOUTH: Normocephalic, atraumatic, moist mucous membranes NECK: SUPPLE, no JVD, no lymphadenopathy, no carotid bruit CV: Regular rate and rhythm, S1S2 normal, no murmurs/rubs/gallops RESPIRATORY: Clear to auscultation bilaterally, no rales/rhonchi/wheezes GI: diffuse abdominal pain on palpation, mildly more distended today, remains soft, BS normoactive in 4 quadrants, no rebound or involuntary guarding, no organomegaly MUSCULOSKELETAL: Normal ROM. No cyanosis, clubbing, swelling, joint deformity, extremity edema INTEGUMENTARY: Intact, no rashes, no lesions, no erythema NEUROLOGIC: Cranial Nerves II-XII are intact, no focal deficits PSYCHIATRIC: Mood and affect are normal Labs: Reviewed: WBC 12.1 Hgb 10.4 platelets 154 Na 136 K 3.7 Cr 0.59 Triglycerides 321 LDL [address] A/P 10/12: FINDINGS: Moderate inflammatory stranding surrounds the head/uncinate process and mid body of the pancreas consistent with acute pancreatitis. The pancreatic parenchyma is relatively homogeneous and intact without evidence for necrosis or infarction. No associated drainable collection/abscess or pseudocyst identified. Hepatosplenomegaly noted. The gallbladder and biliary system appear normal. Bilateral adrenal glands and kidneys are normal. The enteric system including stomach, small, and large bowel are without obstruction or acute inflammatory process. Normal terminal ileum and appendix are identified in the right lower quadrant. Pelvis demonstrates normal bladder and age-appropriate prostate/seminal vesicles. No ascites. No free air. No retroperitoneal adenopathy. Abdominal aorta and vasculature normal. Musculoskeletal structures are intact. Lung bases without acute consolidation, atelectasis, or effusion. IMPRESSION: Acute pancreatitis. No associated drainable collection/abscess or pseudocyst. CT A/P 3/2: FINDINGS: Lung bases demonstrate moderate increased bibasilar atelectasis. Significantly increased peripancreatic and generalized mesenteric inflammatory changes are appreciated throughout the abdomen and pelvis which now include small to moderate amount of ascites extending along the bilateral pericolic gutters into the pelvis. No obvious focal drainable collection/abscess or pseudocyst is identifiable. Hepatosplenomegaly is again noted. Vicarious excretion of contrast into the gallbladder is noted. Kidneys down demonstrate perinephric stranding likely representing secondary inflammatory changes due to pancreatitis. Bilateral adrenal glands are normal in appearance. There is no evidence for bowel obstruction or free air to suggest perforation. Pelvis demonstrates relatively normal bladder and age-appropriate prostat e/seminal vesicles. Calcifications and or foreign body inseparable from the penile shaft warrant correlation, but are unchanged as compared with CT dated 2019. Osseous structures are intact and without acute abnormality. IMPRESSION: 1. Worsening findings related to pancreatitis including markedly increased inflammatory stranding throughout the abdomen and pelvis as well as moderate amount of ascites extending along the pericolic gutters into the pelvis. No obvious drainable collection/abscess or pseudocyst noted. 2. Increased bibasilar atelectasis. 3. Further nonacute findings as above. ASSESSMENT: 35-year-old male with PMH of substance abuse, hyperlipidemia, acid reflux, history of pancreatitis admitted for acute pancreatitis. PLAN: Acute pancreatitis 2/2 hypertriglyceridemia. Failed statins and gemfibrozil, on vascepa. 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 history -Pain severe, WBC now downtrending -CT abd/pelvis above -daily lipid profile and lipase -Continue NPO with icechips and sips for now, increase IVFs to 250 cc/hr, pain control with toradol, morphine PRN (hx of substance abuse but opted for narcotics for pain control PRN) -Repeat CT A/P showed worsening pancreatitis -Had fever, worsening leukocytosis and distention with imaging showing worsening inflammation --> on zosyn, day 3 Hx of substance abuse: -Can continue with home medications HLD and hypertriglyceridemia -on valserpa, to be restarted today GERD -IV PPI DVT px -Lovenox DISPOSITION: To remain inpatient. Plan is discharge home when medically improved. VS,Fishbone, I+O VS, Fishbone, I+O Laboratory Tests 10/15/20 08:12 10/15/20 08:13 Vital Signs Date Time Temp Pulse Resp B/P (MAP) Pulse Ox O2 Delivery O2 Flow Rate FiO2 10/15/20 11:36 18 10/15/20 07:00 101 142/83 (102) 94 Room Air 10/15/20 06:00 99.0 I&O- Last 24 Hours up to 6 AM 10/15/20 06:00 Intake Total 6330 ml Output Total 645 ml Balance 5685 ml EDUARDO CONRAD MD Oct 15, 2020 12:30
[2020-10-15] MEDS: ONDANSETRON 4MG/2ML VIAL IV PRN ×2 (13:30→19:46)
[2020-10-15] MEDS: HYDROMORPHONE HCL 0.5 MG/ 0.5 ML SYRINGE (J1170 PER 1) IV PRN ×2 (13:42→18:36)
[2020-10-15 14:00] VITALS: BP 140/80
[2020-10-15] MEDS: PANTOPRAZOLE 40MG VIAL (C9113 PER 1) IV SCH (14:12)
--- NOTE | 2020-10-15 14:12 | REP ---
INDICATION: worsening abdominal pain COMPARISON: 10/13/2020 TECHNIQUE: Axial noncontrast images from the lung bases to the pubic symphysis with coronal and sagittal reformations. This CT examination was performed using the following dose reduction techniques: Automated exposure control, adjustment of mA and/or kv according to the patient's size, and use of iterative reconstruction technique. FINDINGS: Lung bases demonstrate moderate bibasilar atelectasis which may be slightly improved from prior examination. Significant inflammatory changes surrounding the pancreas, throughout the mesentery and retroperitoneal spaces along with moderate amount of ascites tracking along the paracolic gutters into the pelvis again identified and essentially unchanged. No obvious focal discrete cyst or abscess identified. Hepatosplenomegaly again noted. Gallbladder, bilateral adrenal glands, and kidneys are relatively normal/stable. The enteric system is without obstruction or perforation. No free air is identified. Inflammatory changes to the duodenum again noted and secondary to the surrounding pancreatitis. Pelvis demonstrates normal bladder and age-appropriate prostate/seminal vesicles. Abdominal aorta without aneurysm. Musculoskeletal structures are intact/stable. IMPRESSION: Relatively stable findings consistent with advanced pancreatitis. No drainable collection/abscess or pseudocyst. No bowel obstruction or perforation. <Electronically signed by Juan Urbina > 10/15/20 [id number]
[2020-10-15] MEDS ORDERED: BISACODYL 10 MG SUPP PR PRN (16:55)
[2020-10-15] MEDS ORDERED: HYDROMORPHONE HCL 0.5 MG/ 0.5 ML SYRINGE (J1170 PER 1) IV PRN (20:30)
[2020-10-15] MEDS: SENOKOT S TAB PO SCH (21:11)
[2020-10-15 22:00] VITALS: BP 148/84
[2020-10-16] MEDS: PIPERACILLIN/TAZOBACTAM SOD 3.375 GM in D5W MINI-BAG PLUS 50 ML IV SCH ×2 (01:10→08:07)
[2020-10-16] MEDS: NS 1,000 ML IV SCH ×2 (01:11→08:06)
[2020-10-16] MEDS: ACETAMINOPHEN TAB 650MG DOSE (2X325MG) PO PRN (03:15)
[2020-10-16] MEDS: BUPRENORPHINE/NALOXONE 8-2MG SUBLINGUAL TABLET(SUBOXONE) SL SCH (05:43)
[2020-10-16 05:49] LABS: HEMATOCRIT 29.4 % (42.0-52.0); HEMOGLOBIN 9.4 g/dl (13.5-17.5); MEAN CORPUSCULAR HEMOGLOBIN 28.5 pg (27.0-33.0); MEAN CORPUSCULAR VOLUME 89.1 fl (80.0-96.0); PLATELET COUNT, AUTOMATED 154 10^3/uL (150-450); WHITE BLOOD COUNT 9.8 10^3/uL (4.0-10.0)
[2020-10-16 06:00] VITALS: BP 151/82
[2020-10-16 06:29] LABS: BLOOD UREA NITROGEN 14 MG/DL (7-18); CALCIUM LEVEL 7.1 MG/DL (8.5-10.1); CARBON DIOXIDE LEVEL 29 MEQ/L (21-32); CHLORIDE LEVEL 104 MEQ/L (98-107); CREATININE FOR GFR 0.65 MG/DL (0.70-1.30); GLOMERULAR FILTRATION RATE > 60.0 (>60); GLUCOSE, FASTING 100 MG/DL (70-100); LIPASE 368 U/L (73-393); SODIUM LEVEL 139 MEQ/L (136-145)
[2020-10-16] MEDS: ICOSAPENT ETHYL 1 GM PO SCH (08:07)
[2020-10-16] MEDS: SENOKOT S TAB PO SCH (08:07)
[2020-10-16] MEDS: ENOXAPARIN 40MG/0.4ML SYRINGE (J1650 PER 10MG) SC SCH (08:07)
[2020-10-16] MEDS: ONDANSETRON 4MG/2ML VIAL IV PRN (09:34)
[2020-10-16] MEDS ORDERED: SENN-52 PO (10:48)
[2020-10-16] MEDS ORDERED: ACET1TAB55 PO (10:48)
[2020-10-16] MEDS ORDERED: TRAM50TA2 PO (10:49)
[2020-10-16] MEDS: KETOROLAC 30 MG/ML 1ML VIAL IV PRN (10:49)
[2020-10-16] MEDS ORDERED: ONDA-83 PO (10:49)
[2020-10-16] MEDS ORDERED: CIPR-249 PO (10:49)
--- NOTE | 2020-10-16 11:47 | IPNPDOC ---
Text Note Date of Service The patient was seen on 10/16/20. NOTE SUBJECTIVE: -Persisting abdominal pain better however than yesterday -Had to make NPO again yesterday after abdominal pain worsened with introduction of clear liquid diet. repeat CT A/P showed stable severe acute pancreatitis without pseudocysts, hemorrhage or necrosis -Had fever yesterday afternoon PHYSICAL EXAMINATION: VS: Please see below CONSTITUTIONAL: NAD, appears more comfortable this morning, AAO x 3 EYES: PERRLA, EOM intact HENT, MOUTH: Normocephalic, atraumatic, moist mucous membranes NECK: SUPPLE, no JVD, no lymphadenopathy, no carotid bruit CV: Regular rate and rhythm, S1S2 normal, no murmurs/rubs/gallops RESPIRATORY: Clear to auscultation bilaterally, no rales/rhonchi/wheezes GI: diffuse abdominal pain on palpation, abdomen is softed and less distended today, BS normoactive in 4 quadrants, no rebound or involuntary guarding, no organomegaly MUSCULOSKELETAL: Normal ROM. No cyanosis, clubbing, swelling, joint deformity, extremity edema INTEGUMENTARY: Intact, no rashes, no lesions, no erythema NEUROLOGIC: Cranial Nerves II-XII are intact, no focal deficits PSYCHIATRIC: Mood and affect are normal Labs: Reviewed: WBC 9.8 Hgb 9.4 platelets 154 Na 139 K 4 Cr 0.[address] A/P 10/12: FINDINGS: Moderate inflammatory stranding surrounds the head/uncinate process and mid body of the pancreas consistent with acute pancreatitis. The pancreatic parenchyma is relatively homogeneous and intact without evidence for necrosis or infarction. No associated drainable collection/abscess or pseudocyst identified. Hepatosplenomegaly noted. The gallbladder and biliary system appear normal. Bilateral adrenal glands and kidneys are normal. The enteric system including stomach, small, and large bowel are without obstruction or acute inflammatory process. Normal terminal ileum and appendix are identified in the right lower quadrant. Pelvis demonstrates normal bladder and age-appropriate prostate/seminal vesicles. No ascites. No free air. No retroperitoneal adenopathy. Abdominal aorta and vasculature normal. Musculoskeletal structures are intact. Lung bases without acute consolidation, atelectasis, or effusion. IMPRESSION: Acute pancreatitis. No associated drainable collection/abscess or pseudocyst. CT A/P 10/13: FINDINGS: Lung bases demonstrate moderate increased bibasilar atelectasis. Significantly increased peripancreatic and generalized mesenteric inflammatory changes are appreciated throughout the abdomen and pelvis which now include small to moderate amount of ascites extending along the bilateral pericolic gutters into the pelvis. No obvious focal drainable collection/abscess or pseudocyst is identifiable. Hepatosplenomegaly is again noted. Vicarious excretion of contrast into the gallbladder is noted. Kidneys down demonstrate perinephric stranding likely representing secondary inflammatory changes due to pancreatitis. Bilateral adrenal glands are normal in appearance. There is no evidence for bowel obstruction or free air to suggest perforation. Pelvis demonstrates relatively normal bladder and age-appropriate prostate/seminal vesicles. Calcifications and or foreign body inseparable from the penile shaft warrant correlation, but are unchanged as compared with CT dated 2019. Osseous structures are intact and without acute abnormality. IMPRESSION: 1. Worsening findings related to pancreatitis including markedly increased inflammatory stranding throughout the abdomen and pelvis as well as moderate amount of ascites extending along the pericolic gutters into the pelvis. No obvious drainable collection/abscess or pseudocyst noted. 2. Increased bibasilar atelectasis. 3. Further nonacute findings as above. 3/4 CT A/P: Lung bases demonstrate moderate bibasilar atelectasis which may be slightly improved from prior examination. Significant inflammatory changes surrounding the pancreas, throughout the mesentery and retroperitoneal spaces along with moderate amount of ascites tracking along the paracolic gutters into the pelvis again identified and essentially unchanged. No obvious focal discrete cyst or abscess identified. Hepatosplenomegaly again noted. Gallbladder, bilateral adrenal glands, and kidneys are relatively normal/stable. The enteric system is without obstruction or perforation. No free air is identified. Inflammatory changes to the duodenum again noted and secondary to the surrounding pancreatitis. Pelvis demonstrates normal bladder and age-appropriate prostate/seminal vesicles. Abdominal aorta without aneurysm. Musculoskeletal structures are intact/stable. IMPRESSION: Relatively stable findings consistent with advanced pancreatitis. No drainable collection/abscess or pseudocyst. No bowel obstruction or perforation. ASSESSMENT: 35-year-old male with PMH of substance abuse, hyperlipidemia, acid reflux, history of pancreatitis admitted for acute severe pancreatitis. PLAN: Acute pancreatitis 2/2 hypertriglyceridemia. Failed statins and gemfibrozil, on vascepa. 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 -Had no effect with statins and did not tolerate gemfibrozil. GERD -IV PPI DVT px -Lovenox DISPOSITION: To remain inpatient. Plan is discharge home when medically improved. VS,Fishbone, I+O VS, Fishbone, I+O Laboratory Tests 10/15/20 08:12 10/15/20 08:13 10/16/20 05:41 Vital Signs Date Time Temp Pulse Resp B/P (MAP) Pulse Ox O2 Delivery O2 Flow Rate FiO2 10/16/20 06:00 98.8 89 18 151/82 (105) 92 Room Air 10/15/20 23:33 3.0 I&O- Last 24 Hours up to 6 AM 10/16/20 06:00 Intake Total 4390 ml Output Total 100 ml Balance 4290 ml EDUARDO CONRAD MD Oct 16, 2020 07:39
--- NOTE | 2020-10-16 11:47 | DS.PDOC ---
Discharge Summary General Date of Admission Oct 12, 2020 at 13:32 Date of Discharge 10/16/2020 Attending Physician: EDUARDO CONRAD MD Discharge Summary PROCEDURES PERFORMED DURING STAY: None ADMITTING DIAGNOSES: 1. Pancreatitis DISCHARGE DIAGNOSES: Acute pancreatitis 2/2 hypertriglyceridemia Hypertriglyceridemia Hyperlipidemia History of prior episodes of pancreatitis GERD History of substance abuse COMPLICATIONS/CHIEF COMPLAINT: Acute Pancreatitis. HISTORY OF PRESENT ILLNESS: 35-year-old male with a remote of substance abuse, hyperlipidemia, acid reflux, hypertriglyceridemia and a history of pancreatitis who presented to [facility] emergency room with the chief complaint of worsening severe abdominal pain since the morning of presentation. The patient states he woke up with severe diffuse abdominal pain, sharp, 10/10 on pain scale, non-radiating to the chest or the back that was worse with movement. He had associated weakness but denied chest pain, shortness of breath, nausea, vomiting, diarrhea, recent illnesses, fevers, chills. He had similar pain 4 years ago when he had an episode of pancreatitis but he states that this is worse. He came to the emergency room due to the pain being severe and not improving at home. HOSPITAL COURSE: In the emergency room vital signs were stable. WBC 17.8 sodium 133, AST 50/a LT 40. T bili 1.5, alkaline phosphatase 90. Lipase 2511. CT abdomen and pelvis showed acute pancreatitis without pseudocyst or necrotizing concerns. Patient was given Toradol and Dilaudid for pain control but did not improve significantly. The patient was later admitted to hospitalist service for acute pancreatitis. While inpatient his course was complicated by worsening abdominal pain, leukocytosis and fevers and he was started on zosyn while repeat CT A/P showed worsening inflammation but thankfully without noted pseudocyts, hemorr araceli or necrosis. His pain mildly improved but unfortunately worsened with re- introduction of clear liquids and so bowel rest was continued with antibiotics and aggressive fluids. It finally mildly improved but course was c/b patient's insistence to be discharged. I spoke with him on video conference with his and explicitly expressed that I did not recommend premature discharge home while he was still having episodic fevers and on one trial of clear liquids with residual pain. He insisted on home discharge and was dressed in street clothes and asked to be discharged and that he would take medications from home. He has full capacity on my evaluation and understands that I respectfully disagree with this plan and we discussed red flags and when to return to the ED and anticipate that this may happen. He is now being discharged AMA with a week of BID 500mg cipro for GI coverage for ongoing severe pancreatitis with ongoing fevers, tramadol PRN for severe pain, tylenol PRN for mild pain, ondansetron for nausea, and I am urging that he takes only clear liquids today and if continues to tolerate them, full liquids and very slowly introduce low fat diet thereafter, likely after at least 48 hours from discharge. He and his expressed understanding. I am also requesting a close PCP follow up within the next 5 business days. DISCHARGE MEDICATIONS: Please see below. ALLERGIES: Please see below. PHYSICAL EXAMINATION ON DISCHARGE: VITAL SIGNS: Please see below. PHYSICAL EXAMINATION: VS: Please see below CONSTITUTIONAL: NAD, appears more comfortable this morning, AAO x 3 EYES: PERRLA, EOM intact HENT, MOUTH: Normocephalic, atraumatic, moist mucous membranes NECK: SUPPLE, no JVD, no lymphadenopathy, no carotid bruit CV: Regular rate and rhythm, S1S2 normal, no murmurs/rubs/gallops RESPIRATORY: Clear to auscultation bilaterally, no rales/rhonchi/wheezes GI: Reports that his pain is now better, though nursing reported that he reported severe pain. On examination, has moderate abdominal pain on palpation, abdomen is otherwise soft and less distended today, BS normoactive in 4 quadrants, no rebound or involuntary guarding, no organomegaly MUSCULOSKELETAL: Normal ROM. No cyanosis, clubbing, swelling, joint deformity, extremity edema INTEGUMENTARY: Intact, no rashes, no lesions, no erythema NEUROLOGIC: Cranial Nerves II-XII are intact, no focal deficits PSYCHIATRIC: Mood and affect are normal Labs and Microbiolgy: see below CT A/P 10/12: FINDINGS: Moderate inflammatory stranding surrounds the head/uncinate process and mid body of the pancreas consistent with acute pancreatitis. The pancreatic parenchyma is relatively homogeneous and intact without evidence for necrosis or infarction. No associated drainable collection/abscess or pseudocyst identified. Hepatosplenomegaly noted. The gallbladder and biliary system appear normal. Bilateral adrenal glands and kidneys are normal. The enteric system including stomach, small, and large bowel are without obstruction or acute inflammatory process. Normal terminal ileum and appendix are identified in the right lower quadrant. Pelvis demonstrates normal bladder and age-appropriate prostate/seminal v esicles. No ascites. No free air. No retroperitoneal adenopathy. Abdominal aorta and vasculature normal. Musculoskeletal structures are intact. Lung bases without acute consolidation, atelectasis, or effusion. IMPRESSION: Acute pancreatitis. No associated drainable collection/abscess or pseudocyst. CT A/P 3/: FINDINGS: Lung bases demonstrate moderate increased bibasilar atelectasis. Significantly increased peripancreatic and generalized mesenteric inflammatory changes are appreciated throughout the abdomen and pelvis which now include small to moderate amount of ascites extending along the bilateral pericolic gutters into the pelvis. No obvious focal drainable collection/abscess or pseudocyst is identifiable. Hepatosplenomegaly is again noted. Vicarious excretion of contrast into the gallbladder is noted. Kidneys down demonstrate perinephric stranding likely representing secondary inflammatory changes due to pancreatitis. Bilateral adrenal glands are normal in appearance. There is no evidence for bowel obstruction or free air to suggest perforation. Pelvis demonstrates relatively normal bladder and age-appropriate prostate/seminal vesicles. Calcifications and or foreign body inseparable from the penile shaft warrant correlation, but are unchanged as compared with CT dated 2019. Osseous structures are intact and without acute abnormality. IMPRESSION: 1. Worsening findings related to pancreatitis including markedly increased inflammatory stranding throughout the abdomen and pelvis as well as moderate amount of ascites extending along the pericolic gutters into the pelvis. No obvious drainable collection/abscess or pseudocyst noted. 2. Increased bibasilar atelectasis. 3. Further nonacute findings as above. 10/15 CT A/P: Lung bases demonstrate moderate bibasilar atelectasis which may be slightly improved from prior examination. Significant inflammatory changes surrounding the pancreas, throughout the mesentery and retroperitoneal spaces along with moderate amount of ascites tracking along the paracolic gutters into the pelvis again identified and essentially unchanged. No obvious focal discrete cyst or abscess identified. Hepatosplenomegaly again noted. Gallbladder, bilateral adrenal glands, and kidneys are relatively normal/stable. The enteric system is without obstruction or perforation. No free air is identified. Inflammatory changes to the duodenum again noted and secondary to the surrounding pancreatitis. Pelvis demonstrates normal bladder and age-appropriate prostate/seminal vesicles. Abdominal aorta without aneurysm. Musculoskeletal structures are intact/stable. IMPRESSION: Relatively stable findings consistent with advanced pancreatitis. No drainable collection/abscess or pseudocyst. No bowel obstruction or perforation. PROGNOSIS: High probability for re-admission for ongoing severe pancreatitis. Otherwise his global prognosis is good. ACTIVITY: As tolerated DIET: Clear liquid, to very slowly advance to low fat. DISCHARGE PLAN: Home AMA with cipro for 7d, zofran PRN, tylenol and tramadol PRN and close PCP follow up. DISPOSITION: Home AMA DISCHARGE INSTRUCTIONS: Home AMA with cipro for 7d, zofran PRN, tylenol and tramadol PRN and close PCP follow up. ITEMS TO FOLLOWUP ON ON OUTPATIENT: Ongoing severe pancreatitis DISCHARGE CONDITION: Stable TIME SPENT ON DISCHARGE: 46 minutes. Vital Signs/I&Os Vital Signs Date Time Temp Pulse Resp B/P (MAP) Pulse Ox O2 Delivery O2 Flow Rate FiO2 10/16/20 06:00 98.8 89 18 151/82 (105) 92 Room Air 10/15/20 23:33 3.0 I&O- Last 24 Hours up to 6 AM 10/16/20 06:00 Intake Total 4390 ml Output Total 100 ml Balance 4290 ml Laboratory Data Labs 24H Laboratory Tests 2 10/16/20 05:41: Nucleated Red Blood Cells % (auto) 0.0, Anion Gap 6L, Glomerular Filtration Rate > 60.0, Calcium Level 7.1L, Lipase 368 CBC/BMP Laboratory Tests 10/16/20 05:41 Microbiology Microbiology 10/13/20 Blood Culture - Preliminary, Resulted No Growth after 48 hours. All Specime... 10/13/20 Blood Culture - Preliminary, Resulted No Growth after 48 hours. All Specime... 10/12/20 Blood Culture - Preliminary, Resulted No Growth after 72 hours. All specime... 10/12/20 Blood Culture - Preliminary, Resulted No Growth after 72 hours. All specime... Discharge Medications Scheduled Buprenorphine HCl/Naloxone HCl (Suboxone 8 mg-2 mg Sl Film) 1 Each Film, 1 FILM SL BID, (Reported) Ciprofloxacin HCl (Cipro) 500 Mg Tablet, 1 TAB PO BID Icosapent Ethyl (Vascepa) 1 Gm Capsule, 1 GM PO DAILY, (Reported) Omeprazole (Omeprazole) 40 Mg Capsule.dr, 40 MG PO DAILY, (Reported) Sennosides/Docusate Sodium (Senna Plus Tablet) 1 Each Tablet, 2 TAB PO BID Scheduled PRN Acetaminophen (Acetaminophen) 325 Mg Tablet, 650 MG PO Q6HP PRN for PAIN / FEVER Ondansetron HCl (Ondansetron HCl) 4 Mg Tablet, 4 MG PO Q4HP PRN for NAUSEA OR VOMITING Tramadol HCl (Tramadol HCl) 50 Mg Tablet, 50 MG PO Q6HP PRN for pain Allergies Coded Allergies: No Known Allergies (Unverified , 10/06/17) EDUARDO CONRAD MD Oct 16, 2020 11:37
== END 2020-10-16 11:38 | disposition left against medical advice (07) | DRG 282 ==
LOC: M ED 09:12 → M ED INP 13:32 → M MSPAV 16:02
PROVIDERS: ADMIT Internal Medicine; ATTEND Internal Medicine
DX: K85.90 Acute pancreatitis without necrosis or infection, unspecified (principal); E78.1 Pure hyperglyceridemia; E78.5 Hyperlipidemia, unspecified; K21.9 Gastro-esophageal reflux disease without esophagitis; F12.90 Cannabis use, unspecified, uncomplicated; F17.200 Nicotine dependence, unspecified, uncomplicated; Z79.899 Other long term (current) drug therapy

== ENCOUNTER → 2020-10-29 | Outpatient (REF) | payer OTHER ==
[~2020-10-29] MED LIST changes: +ACET1TAB55 PO; +CIPR-249 PO; +OMEP-221 PO; +ONDA-83 PO; +SENN-52 PO; +SUBO8MIS SL; +TRAM50TA2 PO; +VASC1CAP2 PO
[2020-10-29 12:31] LABS: BASO % 0.6 % (0.0-1.0); EOS # 0.1 10^3/uL (0.0-0.5); HEMOGLOBIN 11.5 g/dl (13.5-17.5); LYMPH # 2.3 10^3/uL (1.5-5.0); MEAN CORPUSCULAR HEMOGLOBIN 29.3 pg (27.0-33.0); MEAN CORPUSCULAR HGB CONC 33.8 g/dl (32.0-36.5); MEAN CORPUSCULAR VOLUME 86.5 fl (80.0-96.0); MONO # 0.4 10^3/uL (0.0-0.8); MONO % 5.8 % (2.0-8.0); NEUTROPHILS # 4.2 10^3/uL (1.5-8.5); NEUTROPHILS % 58.8 % (36.0-66.0); PLATELET COUNT, AUTOMATED 447 10^3/uL (150-450); RED BLOOD COUNT 3.93 10^6/uL (4.30-6.10); WHITE BLOOD COUNT 7.1 10^3/uL (4.0-10.0)
[2020-10-29 13:11] LABS: ALBUMIN 3.4 GM/DL (3.2-5.2); ALT/SGPT 32 U/L (12-78); AMYLASE 62 U/L (25-115); BILIRUBIN,TOTAL 0.2 MG/DL (0.2-1.0); BLOOD UREA NITROGEN 17 MG/DL (7-18); CALCIUM LEVEL 9.1 MG/DL (8.5-10.1); CARBON DIOXIDE LEVEL 32 MEQ/L (21-32); CHLORIDE LEVEL 99 MEQ/L (98-107); CHOLESTEROL LEVEL 264 MG/DL (<200); CHOLESTEROL RISK RATIO 12.571 (<5); CREATININE FOR GFR 0.73 MG/DL (0.70-1.30); GLOMERULAR FILTRATION RATE > 60.0 (>60); GLUCOSE, FASTING 118 MG/DL (70-100); HDL CHOLESTEROL 21 MG/DL (>40); LIPASE 289 U/L (73-393); NON-HDL-C 243 MG/DL; POTASSIUM SERUM 4.9 MEQ/L (3.5-5.1); SODIUM LEVEL 137 MEQ/L (136-145); TOTAL PROTEIN 7.4 GM/DL (6.4-8.2); TRIGLYCERIDES LEVEL 1586 MG/DL (<150)
== END ==
LOC: M LAB REF 11:46
PROVIDERS: ATTEND Family Medicine Addiction Medicine
DX: E78.1 Pure hyperglyceridemia (principal); K85.90 Acute pancreatitis without necrosis or infection, unspecified

== ENCOUNTER → 2021-01-07 | Outpatient (CLI) | payer OTHER ==
--- NOTE | 2021-01-07 17:21 | REP ---
INDICATION: SYNCOPE AND COLLAPSE COMPARISON: None. TECHNIQUE: Briseno scale and color Doppler evaluation using linear high frequency transducer Findings: FINDINGS: Two-dimensional briseno scale and color images demonstrate normal arterial lumen with laminar flow and no appreciable plaquing or narrowing. Color Doppler interrogation demonstrates normal arterial wave patterns and velocities with no significant spectral broadening. Normal flow direction is appreciated in the bilateral vertebral arteries. ICA peak systolic velocity: Right 128.1 cm/s; Left 108.6 cm/s ICA diastolic velocity: Right 38.8 cm/s; Left 35.9 cm/s ECA peak systolic velocity: Right 117.9 cm/s; Left 85.2 cm/s CCA peak systolic velocity: Right 157.3 cm/s; Left 172.1 cm/s ICA/CCA ratio: Right 0.81 cm/s; Left 0.63 cm/s IMPRESSION: No hemodynamically significant areas of narrowing or stenosis appreciated. <Electronically signed by Juan Urbina > 01/07/21 [id number]
== END ==
LOC: M RAD 15:57
PROVIDERS: ATTEND Physician Assistant
DX: R55 Syncope and collapse (principal)

== ENCOUNTER 2021-01-22 19:24 | Emergency (ER) | payer OTHER ==
[~2021-01-22] VITALS: Ht 172.7 cm; Wt 88.0 kg
[2021-01-22 19:25] VITALS: BP 140/88
== END 2021-01-22 22:53 | disposition left against medical advice (07) ==
LOC: M ED 19:24
DX: Z53.21 Procedure and treatment not carried out due to patient leaving prior to being seen by health care provider (principal)

== ENCOUNTER → 2021-02-02 | Outpatient (CLI) | payer OTHER ==
[~2021-02-02] MED LIST changes: +OMEP40CA4 PO; -OMEP40CA97 PO
--- NOTE | 2021-02-03 15:54 | SLEEPHOME ---
DATE: 02/02/2021 ORDERED BY: Roseanne Katz Diagnostic home sleep testing was performed due to concern for the obstructive sleep apnea syndrome. For testing, a nocturnal T3 respiratory monitoring device was used. Continuous record was made of pulse, oxygen saturation, air flow, chest and abdominal strain, and body position. There was 9 hours and 59 minutes of data reviewed. There was 7 hours and 27 minutes marked as time in bed. During the interval marked time in bed, there were 74 respiratory events identified of 10 seconds in duration or greater for a respiratory event index of 9.9. The events were primarily obstructive. Eighteen mixed and central apneas were seen. Baseline pulse rate 68. Pulse rate ranged 49-98. Baseline saturation 95%. Saturations fell to 76%. Testing was performed in both the supine and nonsupine positions. IMPRESSION: Abnormal home sleep testing with repetitive respiratory events and oxygen desaturations to 76% with a respiratory event index of 9.9 is consistent with the obstructive sleep apnea syndrome. RECOMMENDATION: The patient should be encouraged to undergo formal sleep evaluation.
== END ==
LOC: M SLEEP HO 10:26
PROVIDERS: ATTEND Physician Assistant
DX: G47.31 Primary central sleep apnea (principal)

== ENCOUNTER 2021-02-14 09:37 | Emergency (ER) | payer OTHER ==
[~2021-02-14] VITALS: Ht 172.7 cm; Wt 87.2 kg
[2021-02-14 10:44] VITALS: BP 124/74
[2021-02-14] MEDS ORDERED: FLUORESCEIN OPHTH 1 MG STRIP OU ONE (11:10)
[2021-02-14] MEDS ORDERED: PROPARACAINE 0.5% OPHTH SOL 15ML OU ONE (11:10)
[2021-02-14] MEDS ORDERED: OCUF0.25 OP (11:42)
== END 2021-02-14 11:54 | disposition home or self-care (01) ==
LOC: M ED 09:37
DX: H57.89 Other specified disorders of eye and adnexa (principal); Z87.19 Personal history of other diseases of the digestive system; E78.5 Hyperlipidemia, unspecified; F17.200 Nicotine dependence, unspecified, uncomplicated; Z88.6 Allergy status to analgesic agent; Z79.899 Other long term (current) drug therapy

== ENCOUNTER → 2021-05-18 | Outpatient (REF) | payer OTHER, MEDICAID ==
[~2021-05-18] MED LIST changes: +OCUF0.25 OP
== END ==
LOC: M LAB REF 15:05
PROVIDERS: ATTEND Orthopaedic Surgery
DX: R22.42 Localized swelling, mass and lump, left lower limb (principal)

== ENCOUNTER → 2021-06-01 | Outpatient (REF) | payer OTHER ==
[2021-06-01 18:13] LABS: SOURCE, BODY FLUID GLUCOSE LFT KNEE
[2021-06-01 18:17] LABS: SOURCE, BODY FLUID LFT KNEE
[2021-06-01 18:18] LABS: SYNOVIAL FLUID COLOR RED (COLORLESS)
[2021-06-01 18:33] LABS: CRYSTALS, BODY FLUID CA PYROPHOSPHATE (NONE SEEN); SOURCE, BODY FLUID CRYSTALS LFT KNEE
[2021-06-03 06:20] LABS: BODY FLUID RHEUMATOID SCREEN NEGATIVE (NEGATIVE); MUCIN CLOT TEST NO CLOT (4+)
== END ==
LOC: M LAB REF 16:58
PROVIDERS: ATTEND Physician Assistant Surgical
DX: R22.42 Localized swelling, mass and lump, left lower limb (principal)

== ENCOUNTER → 2021-06-01 | Outpatient (CLI) | payer OTHER ==
[2021-06-01 17:33] LABS: BASO % 0.4 % (0.0-1.0); EOS # 0.2 10^3/uL (0.0-0.5); EOS % 1.7 % (0.0-3.0); HEMATOCRIT 36.9 % (42.0-52.0); HEMOGLOBIN 12.8 g/dl (13.5-17.5); LYMPH # 2.9 10^3/uL (1.5-5.0); LYMPH % 27.6 % (24.0-44.0); MEAN CORPUSCULAR HEMOGLOBIN 29.8 pg (27.0-33.0); MEAN CORPUSCULAR HGB CONC 34.7 g/dl (32.0-36.5); MONO # 0.5 10^3/uL (0.0-0.8); MONO % 4.3 % (2.0-8.0); NEUTROPHILS # 6.9 10^3/uL (1.5-8.5); NEUTROPHILS % 65.5 % (36.0-66.0); PLATELET COUNT, AUTOMATED 221 10^3/uL (150-450); RED BLOOD COUNT 4.29 10^6/uL (4.30-6.10); WHITE BLOOD COUNT 10.6 10^3/uL (4.0-10.0)
[2021-06-01 18:25] LABS: ERYTHROCYTE SEDIMENTATION RATE 29 mm/hr (0-15)
== END ==
LOC: M PLALAB 14:54
PROVIDERS: ATTEND Physician Assistant Surgical
DX: R22.42 Localized swelling, mass and lump, left lower limb (principal)

== ENCOUNTER 2021-12-17 08:49 | Emergency (ER) | payer MEDICAID, OTHER ==
[~2021-12-17] VITALS: Ht 172.7 cm; Wt 90.9 kg
[~2021-12-17 08:49] MED LIST changes: -OMEP-221 PO; +OMEP40CA5 PO
[2021-12-17] MEDS ORDERED: HYDR-3713 PO (10:23)
[2021-12-17 10:36] VITALS: BP 131/80
== END 2021-12-17 10:39 | disposition home or self-care (01) ==
LOC: M ED 08:49
DX: S22.42XA Multiple fractures of ribs, left side, initial encounter for closed fracture (principal); F17.200 Nicotine dependence, unspecified, uncomplicated; F10.10 Alcohol abuse, uncomplicated; F19.10 Other psychoactive substance abuse, uncomplicated; V29.49XA Motorcycle driver injured in collision with other motor vehicles in traffic accident, initial encounter; Z88.5 Allergy status to narcotic agent; Z79.899 Other long term (current) drug therapy; Y92.9 Unspecified place or not applicable; Y93.9 Activity, unspecified; Y99.9 Unspecified external cause status

== ENCOUNTER → 2022-04-04 | Outpatient (CLI) | payer MEDICAID ==
[~2022-04-04] MED LIST changes: +HYDR-3713 PO
== END ==
LOC: M OUTALCOH 08:46
PROVIDERS: ATTEND Psychiatry & Neurology Psychiatry
DX: F10.10 Alcohol abuse, uncomplicated (principal)

== ENCOUNTER 2022-04-11 13:24 | Outpatient (RCR) | payer MEDICAID | END 2022-04-13 | LOC: M OUTALCOH 13:24 | PROVIDERS: ATTEND Psychiatry & Neurology Psychiatry | DX: F11.20 Opioid dependence, uncomplicated (principal); F17.200 Nicotine dependence, unspecified, uncomplicated ==

== ENCOUNTER 2022-04-14 14:56 | Outpatient (RCR) | payer MEDICAID ==
[~2022-04-14 14:56] MED LIST changes: +ALBU6.7H6 INH; -PROV108A INH
== END 2022-05-13 ==
LOC: M OUTALCOH 14:56
PROVIDERS: ATTEND Psychiatry & Neurology Psychiatry
DX: F11.20 Opioid dependence, uncomplicated (principal); F17.200 Nicotine dependence, unspecified, uncomplicated

== ENCOUNTER 2022-05-22 11:15 | Emergency (ER) | payer MEDICAID ==
[~2022-05-22] VITALS: Ht 172.7 cm; Wt 102.6 kg
[2022-05-22 14:01] LABS: BASO % 0.4 % (0.0-1.0); EOS # 0.1 10^3/uL (0.0-0.5); HEMATOCRIT 35.7 % (42.0-52.0); HEMOGLOBIN 13.1 g/dl (13.5-17.5); LYMPH # 1.3 10^3/uL (1.5-5.0); LYMPH % 23.8 % (24.0-44.0); MEAN CORPUSCULAR HEMOGLOBIN 31.3 pg (27.0-33.0); MEAN CORPUSCULAR HGB CONC 36.7 g/dl (32.0-36.5); MEAN CORPUSCULAR VOLUME 85.4 fl (80.0-96.0); MONO # 0.3 10^3/uL (0.0-0.8); MONO % 5.7 % (2.0-8.0); NEUTROPHILS # 3.8 10^3/uL (1.5-8.5); NEUTROPHILS % 67.6 % (36.0-66.0); PLATELET COUNT, AUTOMATED 198 10^3/uL (150-450); RED BLOOD COUNT 4.18 10^6/uL (4.30-6.10); WHITE BLOOD COUNT 5.6 10^3/uL (4.0-10.0)
[2022-05-22 14:48] LABS: CK-MB VALUE MASS 1.9 NG/ML (<3.6); MB/CK RELATIVE INDEX 0.42 (< OR =4)
[2022-05-22 15:20] LABS: ALBUMIN 3.4 GM/DL (3.2-5.2); ALT/SGPT 44 U/L (12-78); BILIRUBIN,DIRECT < 0.1 MG/DL (0.0-0.2); BILIRUBIN,TOTAL 0.3 MG/DL (0.2-1.0); NT-PRO BNP 56 PG/ML (<125)
[2022-05-22] MEDS ORDERED: LASI20TA3 PO (15:32)
[2022-05-22] MEDS ORDERED: FUROSEMIDE 40 MG TAB PO ONE (15:35)
[2022-05-22 15:39] VITALS: BP 136/81
== END 2022-05-22 15:41 | disposition home or self-care (01) ==
LOC: M ED 11:15
DX: R07.9 Chest pain, unspecified (principal); R22.43 Localized swelling, mass and lump, lower limb, bilateral; E78.5 Hyperlipidemia, unspecified; F17.200 Nicotine dependence, unspecified, uncomplicated; Z88.5 Allergy status to narcotic agent; Z79.899 Other long term (current) drug therapy

== ENCOUNTER 2022-06-27 11:37 | Emergency (ER) | payer MEDICAID, OTHER ==
[~2022-06-27] VITALS: Ht 172.7 cm; Wt 101.9 kg
[~2022-06-27 11:37] MED LIST changes: +LASI20TA3 PO
[2022-06-27] MEDS ORDERED: HYDR-3363 (11:52)
[2022-06-27] MEDS ORDERED: AMLO1TAB24 (11:52)
[2022-06-27] MEDS ORDERED: LOSA50TA28 (11:52)
[2022-06-27] MEDS ORDERED: IMIP25TA3 (11:52)
[2022-06-27 13:25] LABS: BASO % 0.4 % (0.0-1.0); EOS # 0.3 10^3/uL (0.0-0.5); EOS % 4.3 % (0.0-3.0); HEMATOCRIT 36.2 % (42.0-52.0); HEMOGLOBIN 12.2 g/dl (13.5-17.5); LYMPH # 1.9 10^3/uL (1.5-5.0); LYMPH % 23.5 % (24.0-44.0); MEAN CORPUSCULAR HEMOGLOBIN 28.9 pg (27.0-33.0); MEAN CORPUSCULAR HGB CONC 33.7 g/dl (32.0-36.5); MEAN CORPUSCULAR VOLUME 85.8 fl (80.0-96.0); MONO # 0.3 10^3/uL (0.0-0.8); MONO % 3.4 % (2.0-8.0); NEUTROPHILS # 5.4 10^3/uL (1.5-8.5); PLATELET COUNT, AUTOMATED 203 10^3/uL (150-450); RED BLOOD COUNT 4.22 10^6/uL (4.30-6.10)
[2022-06-27 13:59] LABS: CK-MB VALUE MASS 4.2 NG/ML (<3.6); MB/CK RELATIVE INDEX 1.42 (< OR =4)
[2022-06-27 14:07] LABS: ALBUMIN 3.3 GM/DL (3.2-5.2); ALT/SGPT 34 U/L (12-78); BILIRUBIN,DIRECT < 0.1 MG/DL (0.0-0.2); BILIRUBIN,TOTAL 0.2 MG/DL (0.2-1.0); BLOOD UREA NITROGEN 15 MG/DL (7-18); CALCIUM LEVEL 8.2 MG/DL (8.5-10.1); CARBON DIOXIDE LEVEL 31 MEQ/L (21-32); CHLORIDE LEVEL 100 MEQ/L (98-107); CREATININE FOR GFR 0.86 MG/DL (0.70-1.30); FREE T4 1.04 NG/DL (0.76-1.46); GLOMERULAR FILTRATION RATE > 60.0 (>60); GLUCOSE, FASTING 129 MG/DL (70-100); LIPASE 87 U/L (73-393); NT-PRO BNP 44 PG/ML (<125); POTASSIUM SERUM 3.9 MEQ/L (3.5-5.1); SODIUM LEVEL 136 MEQ/L (136-145); TOTAL PROTEIN 7.4 GM/DL (6.4-8.2)
[2022-06-27 14:57] VITALS: BP 145/78
== END 2022-06-27 15:01 | disposition home or self-care (01) ==
LOC: M ED 11:37
DX: R60.9 Edema, unspecified (principal); I10 Essential (primary) hypertension; I25.2 Old myocardial infarction; F17.200 Nicotine dependence, unspecified, uncomplicated; Z88.6 Allergy status to analgesic agent; Z79.811 Long term (current) use of aromatase inhibitors; Z79.899 Other long term (current) drug therapy